=== PATIENT | female | born 1940 | race African-American/Black ===

== ENCOUNTER → 2018-06-29 | Outpatient (CLI) | payer MEDICARE, MEDICAID ==
[~2018-06-29] MED LIST: AMLO2.5T45 PO; ATOR10TA69 PO; AZAT50TA18 PO; CARV6.2548 PO; DEXL60CA3 PO; FERR-63 PO; FURO40TA5 PO; HYDR-4005 PO; MULT-1146 PO; NEOR25 PO; OMEP20CA10 PO; POTA20TA12 PO; PRED5TAB48 PO; TRAM50TA3 PO; [UNRECOGNIZED DRUG - CODE] PO; cranberry supplement PO
== END | disposition home or self-care (01) ==
LOC: MAMMO 10:40
PROVIDERS: ATTEND Specialist
DX: Z12.31 Encounter for screening mammogram for malignant neoplasm of breast (principal); R92.1 Mammographic calcification found on diagnostic imaging of breast
CPT/HCPCS: 77067

== ENCOUNTER 2018-07-11 11:37 | Inpatient (IN) | payer MEDICARE, MEDICAID ==
[~2018-07-11] VITALS: Ht 175.3 cm; Wt 101.6 kg
[2018-07-11] VITALS (16 sets, daily range): BP systolic 82–135; BP diastolic 43–74
[2018-07-11] MEDS ORDERED: SODIUM CHLORIDE 0.9% 1,000 ML IV ONE (12:41)
[2018-07-11] MEDS ORDERED: ONDANSETRON HCL 4MG/2ML INJ IV STA (12:41)
[2018-07-11] MEDS ORDERED: MORPHINE SULFATE 4 MG/ML CPJ (NOT FOR IM USE) IV STA (12:41)
[2018-07-11 13:27] LABS: BASOPHILS % 0.9 % (0.0-2.0); EOSINOPHILS % 3.7 % (0.0-5.0); HEMATOCRIT. 37.9 % (36.0-48.0); HEMOGLOBIN. 12.5 g/dL (12.0-16.0); LYMPHOCYTES % 13.1 % (20.0-50.0); MEAN CORPUSCULAR HEMOGLOBIN 29.8 pg (28.0-32.0); MEAN CORPUSCULAR VOLUME 90.4 fL (81.0-99.0); MEAN PLATELET VOLUME 9.1 fl (7.4-10.4); MONOCYTES % 14.7 % (2.0-8.0); NEUTROPHILS % 67.6 % (40.0-76.0); PLATELET 224 x1000/uL (130-400); RED CELL DISTRIBUTION WIDTH 14.7 % (11.6-14.6)
[2018-07-11 13:30] LABS: CHLORIDE 103 mEq/L (98-107)
[2018-07-11 13:45] LABS: PROTHROMBIN TIME 47.9 sec (9.1-11.1)
[2018-07-11 14:31] LABS: INR 4.9
[2018-07-11] MEDS ORDERED: PHYTONADIONE 10MG/ML AMP SUBCUT ONE (17:00)
[2018-07-11] MEDS ORDERED: MORPHINE SULFATE 4 MG/ML CPJ (NOT FOR IM USE) IV ONE (18:45)
[2018-07-11] MEDS ORDERED: ONDANSETRON HCL 4MG/2ML INJ IV ONE (18:45)
[2018-07-11] MEDS ORDERED: NICARDIPINE 50 MG in SODIUM CHLORIDE 0.9% 230 ML IV PRN (21:00)
[2018-07-11] MEDS: DEXT 5%/LACTATED RINGERS 1,000 ML IV SCH (21:00)
[2018-07-11] MEDS ORDERED: NICARDIPINE 100 MG in SODIUM CHLORIDE 0.9% 60 ML IV PRN (21:15)
[2018-07-11] MEDS: MORPHINE SULFATE 4 MG/ML CPJ (NOT FOR IM USE) IV PRN (21:34)
[2018-07-11] MEDS: LEVETIRACETAM 500 MG in SODIUM CHLORIDE 0.9% 100 ML IV SCH (23:37)
[2018-07-12] VITALS (64 sets, daily range): BP systolic 78–134; BP diastolic 44–80
[2018-07-12] MEDS: MIDODRINE HCL 5MG TABLET PO SCH ×4 (01:52→18:24)
[2018-07-12 05:30] LABS: HEMATOCRIT 34.9 % (36.0-48.0); HEMOGLOBIN 11.2 g/dL (12.0-16.0); MEAN CORPUSCULAR HEMOGLOBIN 29.7 pg (28.0-32.0); PLATELET 174 x1000/uL (130-400); RED BLOOD CELL COUNT 3.79 mill/uL (4.2-5.4); RED CELL DISTRIBUTION WIDTH 14.7 % (11.6-14.6)
[2018-07-12] MEDS: LEVETIRACETAM 500 MG in SODIUM CHLORIDE 0.9% 100 ML IV SCH ×2 (08:39→21:09)
[2018-07-12] MEDS: MORPHINE SULFATE 4 MG/ML CPJ (NOT FOR IM USE) IV PRN ×3 (12:01→21:10)
[2018-07-12] MEDS ORDERED: VERAPAMIL HCL 2.5 MG/1 ML 2ML VIAL IV PRN (14:00)
[2018-07-12 14:09] LABS: INR 2.6
[2018-07-12] MEDS: HYDROCODONE/ACETAMINOPHEN 5/325MG TABLET PO PRN ×2 (14:55→19:41)
[2018-07-12 15:30] LABS: PROTHROMBIN TIME 26.1 sec (9.1-11.1)
[2018-07-12] MEDS: DILTIAZEM HCL 30MG TABLET PO SCH ×2 (16:25→21:09)
[2018-07-12] MEDS: DEXT 5%/LACTATED RINGERS 1,000 ML IV SCH (18:25)
[2018-07-13] VITALS (55 sets, daily range): BP systolic 85–119; BP diastolic 42–65
[2018-07-13] MEDS: HYDROCODONE/ACETAMINOPHEN 5/325MG TABLET PO PRN ×3 (00:01→20:01)
[2018-07-13] MEDS: MORPHINE SULFATE 4 MG/ML CPJ (NOT FOR IM USE) IV PRN ×3 (01:06→21:01)
[2018-07-13 05:45] LABS: HEMOGLOBIN. 11.5 g/dL (12.0-16.0); MEAN CORPUSCULAR HEMOGLOBIN 29.9 pg (28.0-32.0); MEAN CORPUSCULAR VOLUME 91.1 fL (81.0-99.0); MEAN PLATELET VOLUME 9.1 fl (7.4-10.4); PLATELET 199 x1000/uL (130-400); RED BLOOD CELL COUNT 3.84 mill/uL (4.2-5.4); RED CELL DISTRIBUTION WIDTH 14.7 % (11.6-14.6)
[2018-07-13] MEDS: DILTIAZEM HCL 30MG TABLET PO SCH ×3 (05:47→21:05)
[2018-07-13] MEDS: LEVETIRACETAM 500 MG in SODIUM CHLORIDE 0.9% 100 ML IV SCH ×2 (08:24→21:00)
[2018-07-13 08:45] LABS: PLATELET ESTIMATE NORMAL
[2018-07-13] MEDS: MIDODRINE HCL 5MG TABLET PO SCH ×3 (09:11→18:07)
[2018-07-13] MEDS ORDERED: MORPHINE SULFATE 4 MG/ML CPJ (NOT FOR IM USE) IV SCH (10:15)
[2018-07-13 12:27] LABS: INR 1.8; PROTHROMBIN TIME 17.6 sec (9.1-11.1)
[2018-07-13] MEDS: PHYTONADIONE 10MG/ML AMP SUBCUT SCH (13:59)
[2018-07-13] MEDS: OMEPRAZOLE 20MG CAPSULE EXTENDED RELEASE PO SCH (13:59)
[2018-07-13] MEDS: DEXT 5%/LACTATED RINGERS 1,000 ML IV SCH (14:02)
[2018-07-14] VITALS (66 sets, daily range): BP systolic 92–135; BP diastolic 46–69
[2018-07-14] MEDS: MORPHINE SULFATE 4 MG/ML CPJ (NOT FOR IM USE) IV PRN ×3 (04:34→22:13)
[2018-07-14 05:02] LABS: HEMATOCRIT. 33.2 % (36.0-48.0); HEMOGLOBIN. 10.9 g/dL (12.0-16.0); MEAN CORPUSCULAR HEMOGLOBIN 29.8 pg (28.0-32.0); MEAN PLATELET VOLUME 9.1 fl (7.4-10.4); PLATELET 178 x1000/uL (130-400); RED BLOOD CELL COUNT 3.65 mill/uL (4.2-5.4); RED CELL DISTRIBUTION WIDTH 14.5 % (11.6-14.6)
[2018-07-14 05:09] LABS: INR 1.4
[2018-07-14] MEDS: DILTIAZEM HCL 30MG TABLET PO SCH ×3 (06:00→21:29)
[2018-07-14] MEDS: OMEPRAZOLE 20MG CAPSULE EXTENDED RELEASE PO SCH (06:01)
[2018-07-14] MEDS: DEXT 5%/0.9% NACL 1,000 ML IV SCH (08:01)
[2018-07-14] MEDS: PHYTONADIONE 10MG/ML AMP SUBCUT SCH (08:10)
[2018-07-14] MEDS: MIDODRINE HCL 5MG TABLET PO SCH ×3 (08:10→18:19)
[2018-07-14 08:15] LABS: PLATELET ESTIMATE NORMAL
[2018-07-14] MEDS: LEVETIRACETAM 500 MG in SODIUM CHLORIDE 0.9% 100 ML IV SCH ×2 (09:28→21:28)
[2018-07-14] MEDS: HYDROCODONE/ACETAMINOPHEN 5/325MG TABLET PO PRN ×2 (11:54→18:20)
[2018-07-15] VITALS (88 sets, daily range): BP systolic 76–120; BP diastolic 38–68
[2018-07-15] MEDS: OMEPRAZOLE 20MG CAPSULE EXTENDED RELEASE PO SCH (04:49)
[2018-07-15] MEDS: DILTIAZEM HCL 30MG TABLET PO SCH ×3 (04:50→21:22)
[2018-07-15] MEDS: HYDROCODONE/ACETAMINOPHEN 5/325MG TABLET PO PRN ×5 (04:50→21:11)
[2018-07-15 05:29] LABS: BASOPHILS % 0.8 % (0.0-2.0); EOSINOPHILS % 4.4 % (0.0-5.0); HEMATOCRIT. 32.4 % (36.0-48.0); HEMOGLOBIN. 10.6 g/dL (12.0-16.0); LYMPHOCYTES % 11.4 % (20.0-50.0); MEAN CORPUSCULAR HEMOGLOBIN 29.7 pg (28.0-32.0); MEAN CORPUSCULAR VOLUME 90.7 fL (81.0-99.0); MEAN PLATELET VOLUME 9.2 fl (7.4-10.4); MONOCYTES % 14.8 % (2.0-8.0); NEUTROPHILS % 68.6 % (40.0-76.0); PLATELET 179 x1000/uL (130-400); RED BLOOD CELL COUNT 3.57 mill/uL (4.2-5.4); RED CELL DISTRIBUTION WIDTH 14.2 % (11.6-14.6)
[2018-07-15 05:59] LABS: INR 1.2; PROTHROMBIN TIME 11.9 sec (9.1-11.1)
[2018-07-15] MEDS: DEXT 5%/0.9% NACL 1,000 ML IV SCH (08:05)
[2018-07-15] MEDS: MIDODRINE HCL 5MG TABLET PO SCH ×3 (08:30→17:07)
[2018-07-15] MEDS: LEVETIRACETAM 500 MG in SODIUM CHLORIDE 0.9% 100 ML IV SCH ×2 (08:30→20:36)
[2018-07-15] MEDS: PHYTONADIONE 10MG/ML AMP SUBCUT SCH (08:31)
[2018-07-15] MEDS ORDERED: LACTULOSE 20G/30ML UDC PO NR (11:30)
[2018-07-15] MEDS ORDERED: DOCUSATE SODIUM 250MG CAPSULE PO NR (11:30)
[2018-07-15] MEDS ORDERED: BISACODYL 5MG TABLET PO PRN (11:30)
[2018-07-15] MEDS: HYDROXYZINE 10 MG TABLET PO PRN ×2 (15:02→20:22)
[2018-07-15] MEDS: MORPHINE SULFATE 4 MG/ML CPJ (NOT FOR IM USE) IV PRN (17:54)
[2018-07-16] VITALS (85 sets, daily range): BP systolic 86–156; BP diastolic 34–70
[2018-07-16 05:27] LABS: BASOPHILS % 0.9 % (0.0-2.0); HEMATOCRIT. 30.7 % (36.0-48.0); HEMOGLOBIN. 10.2 g/dL (12.0-16.0); LYMPHOCYTES % 10.6 % (20.0-50.0); MEAN CORPUSCULAR HEMOGLOBIN 29.8 pg (28.0-32.0); MEAN CORPUSCULAR VOLUME 90.1 fL (81.0-99.0); MEAN PLATELET VOLUME 8.7 fl (7.4-10.4); MONOCYTES % 11.9 % (2.0-8.0); NEUTROPHILS % 71.6 % (40.0-76.0); PLATELET 168 x1000/uL (130-400); RED BLOOD CELL COUNT 3.41 mill/uL (4.2-5.4); RED CELL DISTRIBUTION WIDTH 13.9 % (11.6-14.6)
[2018-07-16 05:31] LABS: INR 1.2; PROTHROMBIN TIME 11.8 sec (9.1-11.1)
[2018-07-16] MEDS: MORPHINE SULFATE 4 MG/ML CPJ (NOT FOR IM USE) IV PRN (05:44)
[2018-07-16] MEDS: DILTIAZEM HCL 30MG TABLET PO SCH ×3 (05:48→21:06)
[2018-07-16] MEDS: OMEPRAZOLE 20MG CAPSULE EXTENDED RELEASE PO SCH (05:49)
[2018-07-16] MEDS ORDERED: FENTANYL CITRATE/PF 50MCG/ML 2ML VIAL ONE (07:12)
[2018-07-16] MEDS ORDERED: NEOSTIGMINE METHYLSULFATE 1MG/ML 10 ML VIAL ONE (07:13)
[2018-07-16] MEDS ORDERED: ROCURONIUM BROMIDE 10MG/ML VIAL 5ML IV ONE ×2 (07:13→08:14)
[2018-07-16] MEDS ORDERED: PROPOFOL 200MG/20ML VIAL IV ONE (07:13)
[2018-07-16] MEDS ORDERED: MIDAZOLAM HCL 2 MG/2 ML VIAL ONE (07:14)
[2018-07-16] MEDS ORDERED: GLYCOPYRROLATE 0.2 MG/ML 2ML VIAL ONE (07:14)
[2018-07-16] MEDS ORDERED: LIDOCAINE HCL/EPINEPHRINE 1%-EPI 1:100,000 20 ML VIAL ONE (07:16)
[2018-07-16] MEDS ORDERED: THROMBIN (BOVINE) 5000 UNITS/VIAL TOP ONE (07:16)
[2018-07-16] MEDS ORDERED: NORMAL SALINE 0.9% 10 ML SYR ONE (07:16)
[2018-07-16] MEDS ORDERED: GELATIN SPONGE,COMPRESSED SZ 100 ONE (07:17)
[2018-07-16] MEDS ORDERED: BACITRACIN 50,000 UNITS/VIAL ONE (07:17)
[2018-07-16] MEDS ORDERED: NICARDIPINE 100 MG in SODIUM CHLORIDE 0.9% 60 ML IV PRN (07:30)
[2018-07-16] MEDS ORDERED: ONDANSETRON HCL 4MG/2ML INJ ONE (07:34)
[2018-07-16] MEDS ORDERED: DEXAMETHASONE 4MG/ML 1ML VIAL ONE (07:34)
[2018-07-16] MEDS ORDERED: MEPERIDINE HCL/PF 25MG/ML CPJ IV PRN (08:30)
[2018-07-16] MEDS ORDERED: ONDANSETRON HCL 4MG/2ML INJ IV PRN (08:30)
[2018-07-16] MEDS ORDERED: LABETALOL 5MG/ML SYR 20 MG/4 ML SYRINGE IV PRN (08:30)
[2018-07-16] MEDS ORDERED: HYDROMORPHONE HCL/PF 2MG/ML CPJ IV PRN (08:30)
[2018-07-16] MEDS ORDERED: DOCUSATE SODIUM 250MG CAPSULE PO SCH (09:00)
[2018-07-16] MEDS: DEXT 5%/LACTATED RINGERS 1,000 ML IV SCH (10:00)
[2018-07-16] MEDS: LEVETIRACETAM 500 MG in SODIUM CHLORIDE 0.9% 100 ML IV SCH ×2 (11:13→20:56)
[2018-07-16] MEDS: DEXAMETHASONE 4MG/ML 1ML VIAL IV SCH ×2 (11:16→18:24)
[2018-07-16] MEDS ORDERED: PANTOPRAZOLE SODIUM 40 MG/VIAL IV NR (12:00)
[2018-07-16] MEDS: PROPOFOL 10MG/ML 100ML 100 ML IV PRN ×2 (12:27→20:56)
[2018-07-16 14:58] LABS: BG CARBOXYHEMOGLOBIN 0.2 % (0.5-1.5); BG DEOXYHEMOGLOBIN 1.6 % (0.0-5.0); BG FRACTION INSPIRED OXYGEN 100; BG HCO3 ACT 26.8 mmol/L (22.0-26.0); BG METHEMOGLOBIN 0.1 % (0.0-1.5); BG OXYGEN SATURATION 98.4 % (92.0-98.5); BG OXYHEMOGLOBIN 98.1 % (94.0-97.0); BG PCO2 42.6 mmHg (35.0-45.0); BG PH 7.416 (7.350-7.450); BG PO2 132.8 mmHg (75.0-100.0); BG SAMPLE SITE A-LINE; BG TIDAL VOLUME(mL) 500 mL; BG TOTAL HEMOGLOBIN 11.2 g/dL (12.0-18.0); BG VENT MODE VENT - A/C; BG VENT RATE 10 set
[2018-07-16 15:33] LABS: INR 1.1; PROTHROMBIN TIME 10.9 sec (9.1-11.1)
[2018-07-17] VITALS (73 sets, daily range): BP systolic 68–157; BP diastolic 49–83
[2018-07-17] MEDS: DEXAMETHASONE 4MG/ML 1ML VIAL IV SCH ×5 (00:02→23:16)
[2018-07-17] MEDS: DEXT 5%/LACTATED RINGERS 1,000 ML IV SCH (00:10)
[2018-07-17 05:28] LABS: INR 1.1; PROTHROMBIN TIME 10.9 sec (9.1-11.1)
[2018-07-17] MEDS: DILTIAZEM HCL 30MG TABLET PO SCH ×3 (06:00→21:08)
[2018-07-17] MEDS: PROPOFOL 10MG/ML 100ML 100 ML IV PRN (06:30)
[2018-07-17] MEDS: CEFAZOLIN 1000MG PREMIX 50 ML IV SCH (06:30)
[2018-07-17] MEDS ORDERED: CEFAZOLIN SODIUM 1000MG/VIAL IV SCH (07:30)
[2018-07-17] MEDS: LEVETIRACETAM 500 MG in SODIUM CHLORIDE 0.9% 100 ML IV SCH ×2 (09:45→21:09)
[2018-07-17] MEDS: PANTOPRAZOLE SODIUM 40 MG/VIAL IV SCH (09:45)
[2018-07-17] MEDS: MORPHINE SULFATE 4 MG/ML CPJ (NOT FOR IM USE) IV PRN ×2 (10:51→17:26)
[2018-07-17 11:05] LABS: BG BASE EXCESS 0.8 mmol/L (-2.0-2.0); BG CARBOXYHEMOGLOBIN 0.3 % (0.5-1.5); BG DEOXYHEMOGLOBIN 3.2 % (0.0-5.0); BG FRACTION INSPIRED OXYGEN 70; BG HCO3 ACT 24.9 mmol/L (22.0-26.0); BG METHEMOGLOBIN 0.2 % (0.0-1.5); BG OXYGEN SATURATION 96.8 % (92.0-98.5); BG OXYHEMOGLOBIN 96.3 % (94.0-97.0); BG PCO2 37.6 mmHg (35.0-45.0); BG PH 7.438 (7.350-7.450); BG PO2 93.4 mmHg (75.0-100.0); BG PRESSURE SUPPORT 8; BG SAMPLE SITE A-LINE; BG TOTAL HEMOGLOBIN 10.3 g/dL (12.0-18.0); BG VENT MODE VENT - CPAP
[2018-07-17] MEDS ORDERED: IPRATROPIUM/ALBUTEROL 0.5-3(2.5)MG/3ML NEB HHN PRN (12:15)
[2018-07-17] MEDS: CEFEPIME 2,000 MG in DEXT 5% WATER 100 ML IV SCH (14:41)
[2018-07-17] MEDS: METRONIDAZOLE 500 MG PREMIX 100 ML IV SCH ×2 (14:42→22:26)
[2018-07-17] MEDS: IPRATROPIUM/ALBUTEROL 0.5-3(2.5)MG/3ML NEB HHN SCH ×2 (19:53→23:50)
[2018-07-17] MEDS: ACETYLCYSTEINE 100MG/ML 10% VIAL 4ML INH SCH (23:50)
[2018-07-18] VITALS (51 sets, daily range): BP systolic 82–172; BP diastolic 44–87
[2018-07-18] MEDS: MORPHINE SULFATE 4 MG/ML CPJ (NOT FOR IM USE) IV PRN ×6 (00:04→19:55)
[2018-07-18] MEDS: IPRATROPIUM/ALBUTEROL 0.5-3(2.5)MG/3ML NEB HHN SCH ×5 (04:08→20:21)
[2018-07-18 05:43] LABS: HEMOGLOBIN. 9.7 g/dL (12.0-16.0); MEAN CORPUSCULAR HEMOGLOBIN 30.2 pg (28.0-32.0); MEAN CORPUSCULAR VOLUME 89.8 fL (81.0-99.0); MEAN PLATELET VOLUME 9.5 fl (7.4-10.4); PLATELET 186 x1000/uL (130-400); RED BLOOD CELL COUNT 3.23 mill/uL (4.2-5.4); RED CELL DISTRIBUTION WIDTH 13.5 % (11.6-14.6)
[2018-07-18] MEDS: DILTIAZEM HCL 30MG TABLET PO SCH ×4 (06:00→16:06)
[2018-07-18] MEDS: DEXAMETHASONE 4MG/ML 1ML VIAL IV SCH ×3 (06:25→18:15)
[2018-07-18] MEDS: METRONIDAZOLE 500 MG PREMIX 100 ML IV SCH ×3 (06:25→23:31)
[2018-07-18] MEDS: CEFAZOLIN 1000MG PREMIX 50 ML IV SCH (06:32)
[2018-07-18] MEDS: ACETYLCYSTEINE 100MG/ML 10% VIAL 4ML INH SCH ×2 (08:25→16:10)
[2018-07-18] MEDS: LEVETIRACETAM 500 MG in SODIUM CHLORIDE 0.9% 100 ML IV SCH ×2 (09:41→21:31)
[2018-07-18] MEDS: PANTOPRAZOLE SODIUM 40 MG/VIAL IV SCH (09:42)
[2018-07-18 10:28] LABS: PLATELET ESTIMATE NORMAL
[2018-07-18 11:37] LABS: BG BASE EXCESS -2.8 mmol/L (-2.0-2.0); BG CARBOXYHEMOGLOBIN 0.2 % (0.5-1.5); BG DEOXYHEMOGLOBIN 2.4 % (0.0-5.0); BG FRACTION INSPIRED OXYGEN 40; BG HCO3 ACT 21.5 mmol/L (22.0-26.0); BG OXYGEN SATURATION 97.6 % (92.0-98.5); BG OXYHEMOGLOBIN 97.4 % (94.0-97.0); BG PCO2 35.5 mmHg (35.0-45.0); BG PH 7.401 (7.350-7.450); BG PO2 106.8 mmHg (75.0-100.0); BG PRESSURE SUPPORT 8; BG SAMPLE SITE A-LINE; BG TOTAL HEMOGLOBIN 10.4 g/dL (12.0-18.0); BG VENT MODE VENT - CPAP
[2018-07-18] MEDS: CEFEPIME 2,000 MG in DEXT 5% WATER 100 ML IV SCH (14:10)
[2018-07-18] MEDS: DEXT 5%/0.45% NACL 1000ML 1,000 ML IV SCH (14:11)
[2018-07-18] MEDS ORDERED: LIDOCAINE HCL 1% 10 MG/ML 10ML VIAL ONE (15:08)
[2018-07-18] MEDS ORDERED: SODIUM BICARBONATE 4% (2.4MEQ) 5ML VIAL IV ONE (15:08)
[2018-07-19] VITALS (64 sets, daily range): BP systolic 86–152; BP diastolic 30–126
[2018-07-19] MEDS: ACETYLCYSTEINE 100MG/ML 10% VIAL 4ML INH SCH ×3 (00:26→16:00)
[2018-07-19] MEDS: IPRATROPIUM/ALBUTEROL 0.5-3(2.5)MG/3ML NEB HHN SCH ×6 (00:26→20:48)
[2018-07-19] MEDS: DEXAMETHASONE 4MG/ML 1ML VIAL IV SCH ×4 (01:07→18:06)
[2018-07-19] MEDS: MORPHINE SULFATE 4 MG/ML CPJ (NOT FOR IM USE) IV PRN ×5 (01:17→18:27)
[2018-07-19 06:12] LABS: HEMATOCRIT. 30.9 % (36.0-48.0); HEMOGLOBIN. 10.4 g/dL (12.0-16.0); MEAN CORPUSCULAR HEMOGLOBIN 30.3 pg (28.0-32.0); MEAN PLATELET VOLUME 9.1 fl (7.4-10.4); PLATELET 197 x1000/uL (130-400); RED BLOOD CELL COUNT 3.44 mill/uL (4.2-5.4); RED CELL DISTRIBUTION WIDTH 13.8 % (11.6-14.6)
[2018-07-19] MEDS: METRONIDAZOLE 500 MG PREMIX 100 ML IV SCH ×3 (06:46→22:47)
[2018-07-19] MEDS: DILTIAZEM HCL 30MG TABLET PO SCH ×3 (06:46→22:00)
[2018-07-19] MEDS: PANTOPRAZOLE SODIUM 40 MG/VIAL IV SCH (09:39)
[2018-07-19] MEDS: LEVETIRACETAM 500 MG in SODIUM CHLORIDE 0.9% 100 ML IV SCH ×2 (09:39→22:36)
[2018-07-19] MEDS ORDERED: DOCUSATE SODIUM 250MG CAPSULE PO SCH (12:15)
[2018-07-19 13:02] LABS: PLATELET ESTIMATE NORMAL
[2018-07-19] MEDS: CEFEPIME 2,000 MG in DEXT 5% WATER 100 ML IV SCH (15:10)
[2018-07-19] MEDS: DEXT 5%/0.45% NACL 1000ML 1,000 ML IV SCH (22:37)
[2018-07-20] VITALS (56 sets, daily range): BP systolic 64–142; BP diastolic 18–95
[2018-07-20] MEDS: DEXAMETHASONE 4MG/ML 1ML VIAL IV SCH ×3 (00:27→13:49)
[2018-07-20] MEDS: ACETYLCYSTEINE 100MG/ML 10% VIAL 4ML INH SCH ×4 (00:30→17:26)
[2018-07-20] MEDS: IPRATROPIUM/ALBUTEROL 0.5-3(2.5)MG/3ML NEB HHN SCH ×6 (00:51→21:05)
[2018-07-20] MEDS: DILTIAZEM HCL 30MG TABLET PO SCH (06:12)
[2018-07-20] MEDS: METRONIDAZOLE 500 MG PREMIX 100 ML IV SCH ×3 (06:13→22:11)
[2018-07-20] MEDS: MORPHINE SULFATE 4 MG/ML CPJ (NOT FOR IM USE) IV PRN ×5 (06:25→23:37)
[2018-07-20 06:35] LABS: HEMATOCRIT. 31.1 % (36.0-48.0); HEMOGLOBIN. 10.3 g/dL (12.0-16.0); MEAN CORPUSCULAR HEMOGLOBIN 29.7 pg (28.0-32.0); MEAN CORPUSCULAR VOLUME 89.5 fL (81.0-99.0); MEAN PLATELET VOLUME 9.6 fl (7.4-10.4); PLATELET 200 x1000/uL (130-400); RED BLOOD CELL COUNT 3.48 mill/uL (4.2-5.4); RED CELL DISTRIBUTION WIDTH 13.9 % (11.6-14.6)
[2018-07-20 08:01] LABS: PLATELET ESTIMATE NORMAL
[2018-07-20] MEDS: LEVETIRACETAM 500 MG in SODIUM CHLORIDE 0.9% 100 ML IV SCH ×2 (08:48→20:40)
[2018-07-20] MEDS: DOCUSATE SODIUM 250MG CAPSULE PO SCH (08:49)
[2018-07-20] MEDS: PANTOPRAZOLE SODIUM 40 MG/VIAL IV SCH (08:49)
[2018-07-20] MEDS: DILTIAZEM HCL 60MG TABLET PO SCH ×2 (14:00→20:40)
[2018-07-20] MEDS: CEFEPIME 2,000 MG in DEXT 5% WATER 100 ML IV SCH (17:12)
[2018-07-21] VITALS (27 sets, daily range): BP systolic 114–144; BP diastolic 40–82
[2018-07-21] MEDS: IPRATROPIUM/ALBUTEROL 0.5-3(2.5)MG/3ML NEB HHN SCH ×5 (00:36→20:16)
[2018-07-21] MEDS: MORPHINE SULFATE 4 MG/ML CPJ (NOT FOR IM USE) IV PRN ×2 (04:50→09:38)
[2018-07-21] MEDS: DILTIAZEM HCL 60MG TABLET PO SCH ×3 (05:38→22:00)
[2018-07-21 06:22] LABS: HEMATOCRIT. 28.4 % (36.0-48.0); HEMOGLOBIN. 9.6 g/dL (12.0-16.0); MEAN CORPUSCULAR HEMOGLOBIN 30.2 pg (28.0-32.0); MEAN CORPUSCULAR VOLUME 89.7 fL (81.0-99.0); MEAN PLATELET VOLUME 9.3 fl (7.4-10.4); PLATELET 176 x1000/uL (130-400); RED BLOOD CELL COUNT 3.17 mill/uL (4.2-5.4); RED CELL DISTRIBUTION WIDTH 13.7 % (11.6-14.6)
[2018-07-21] MEDS ORDERED: DEXAMETHASONE 4MG/ML 1ML VIAL IV SCH (09:00)
[2018-07-21] MEDS: DOCUSATE SODIUM 250MG CAPSULE PO SCH (09:00)
[2018-07-21] MEDS: PANTOPRAZOLE SODIUM 40 MG/VIAL IV SCH (09:11)
[2018-07-21] MEDS: LEVETIRACETAM 500 MG in SODIUM CHLORIDE 0.9% 100 ML IV SCH ×2 (09:11→21:39)
[2018-07-21] MEDS: ACETYLCYSTEINE 100MG/ML 10% VIAL 4ML INH SCH ×2 (11:24→15:29)
[2018-07-21] MEDS: CEFEPIME 2,000 MG in DEXT 5% WATER 100 ML IV SCH (13:21)
[2018-07-21 13:40] LABS: PLATELET ESTIMATE NORMAL
[2018-07-21] MEDS: METRONIDAZOLE 500 MG PREMIX 100 ML IV SCH ×3 (14:06→22:22)
[2018-07-21] MEDS: HYDROCODONE/ACETAMINOPHEN 5/325MG TABLET PO PRN (18:01)
[2018-07-21] MEDS: QUETIAPINE FUMARATE 25MG TABLET PO SCH (21:39)
[2018-07-22] MEDS: ACETYLCYSTEINE 100MG/ML 10% VIAL 4ML INH SCH (00:28)
[2018-07-22] MEDS: IPRATROPIUM/ALBUTEROL 0.5-3(2.5)MG/3ML NEB HHN SCH ×5 (00:28→19:53)
[2018-07-22] MEDS: BISACODYL 5MG TABLET PO PRN ×2 (01:15→21:18)
[2018-07-22 04:00] VITALS: BP 119/59
[2018-07-22] MEDS: DILTIAZEM HCL 60MG TABLET PO SCH ×3 (05:51→21:09)
[2018-07-22 05:55] VITALS: BP 122/54
[2018-07-22] MEDS: METRONIDAZOLE 500 MG PREMIX 100 ML IV SCH ×3 (06:00→22:00)
[2018-07-22] MEDS: HYDROCODONE/ACETAMINOPHEN 5/325MG TABLET PO PRN ×2 (06:32→14:05)
[2018-07-22 07:24] LABS: HEMATOCRIT. 27.2 % (36.0-48.0); HEMOGLOBIN. 9.3 g/dL (12.0-16.0); MEAN CORPUSCULAR HEMOGLOBIN 30.4 pg (28.0-32.0); MEAN CORPUSCULAR VOLUME 88.5 fL (81.0-99.0); MEAN PLATELET VOLUME 9.3 fl (7.4-10.4); PLATELET 179 x1000/uL (130-400); RED BLOOD CELL COUNT 3.07 mill/uL (4.2-5.4); RED CELL DISTRIBUTION WIDTH 13.6 % (11.6-14.6)
[2018-07-22 08:00] VITALS: BP 106/32
[2018-07-22] MEDS: DOCUSATE SODIUM 250MG CAPSULE PO SCH (09:00)
[2018-07-22] MEDS: PANTOPRAZOLE SODIUM 40 MG/VIAL IV SCH (09:00)
[2018-07-22] MEDS: DEXAMETHASONE 4MG/ML 1ML VIAL IV SCH (09:00)
[2018-07-22 12:00] VITALS: BP 123/28
[2018-07-22] MEDS: LEVETIRACETAM 500 MG in SODIUM CHLORIDE 0.9% 100 ML IV SCH ×2 (14:51→21:08)
[2018-07-22] MEDS: CEFEPIME 2,000 MG in DEXT 5% WATER 100 ML IV SCH (14:51)
[2018-07-22 16:00] VITALS: BP 136/21
[2018-07-22 20:00] VITALS: BP 116/66
[2018-07-22] MEDS: QUETIAPINE FUMARATE 25MG TABLET PO SCH (21:09)
[2018-07-22] MEDS: HYDROCODONE/ACETAMINOPHEN 10/325MG TABLET PO PRN (21:19)
[2018-07-23] VITALS: BP 110/71
[2018-07-23] MEDS: IPRATROPIUM/ALBUTEROL 0.5-3(2.5)MG/3ML NEB HHN SCH ×6 (00:34→20:52)
[2018-07-23] MEDS: ACETYLCYSTEINE 100MG/ML 10% VIAL 4ML INH SCH (00:35)
[2018-07-23 04:00] VITALS: BP 110/75
[2018-07-23] MEDS: DILTIAZEM HCL 60MG TABLET PO SCH ×3 (06:17→22:00)
[2018-07-23] MEDS: METRONIDAZOLE 500 MG PREMIX 100 ML IV SCH ×3 (06:17→23:04)
[2018-07-23 08:00] VITALS: BP 143/28
[2018-07-23 09:02] LABS: PLATELET ESTIMATE NORMAL
[2018-07-23] MEDS: DEXAMETHASONE 4MG/ML 1ML VIAL IV SCH (09:19)
[2018-07-23] MEDS: PANTOPRAZOLE SODIUM 40 MG/VIAL IV SCH (09:19)
[2018-07-23] MEDS: DOCUSATE SODIUM 250MG CAPSULE PO SCH (09:19)
[2018-07-23] MEDS: HYDROCODONE/ACETAMINOPHEN 10/325MG TABLET PO PRN ×2 (09:19→16:12)
[2018-07-23] MEDS: LEVETIRACETAM 500 MG in SODIUM CHLORIDE 0.9% 100 ML IV SCH ×2 (09:20→21:09)
[2018-07-23 09:57] LABS: HEMATOCRIT. 26.3 % (36.0-48.0); HEMOGLOBIN. 8.8 g/dL (12.0-16.0); MEAN CORPUSCULAR HEMOGLOBIN 30.3 pg (28.0-32.0); MEAN CORPUSCULAR VOLUME 90.7 fL (81.0-99.0); MEAN PLATELET VOLUME 9.2 fl (7.4-10.4); PLATELET 155 x1000/uL (130-400); RED BLOOD CELL COUNT 2.89 mill/uL (4.2-5.4); RED CELL DISTRIBUTION WIDTH 13.6 % (11.6-14.6)
[2018-07-23 12:00] VITALS: BP 116/30
[2018-07-23] MEDS: HYDROCODONE/ACETAMINOPHEN 5/325MG TABLET PO PRN ×2 (13:31→18:02)
[2018-07-23] MEDS: CEFEPIME 2,000 MG in DEXT 5% WATER 100 ML IV SCH (13:31)
[2018-07-23 14:11] LABS: PLATELET ESTIMATE NORMAL
[2018-07-23 15:53] VITALS: BP 116/42
[2018-07-23 20:00] VITALS: BP_SYST 94; BP_DIAS 54; BP_DIAS 59
[2018-07-23] MEDS: QUETIAPINE FUMARATE 25MG TABLET PO SCH (21:09)
[2018-07-24] VITALS (7 sets, daily range): BP systolic 107–142; BP diastolic 26–50
[2018-07-24] MEDS: IPRATROPIUM/ALBUTEROL 0.5-3(2.5)MG/3ML NEB HHN SCH ×6 (01:27→21:17)
[2018-07-24] MEDS: HYDROCODONE/ACETAMINOPHEN 10/325MG TABLET PO PRN ×3 (02:37→19:01)
[2018-07-24] MEDS: METRONIDAZOLE 500 MG PREMIX 100 ML IV SCH ×2 (06:26→15:03)
[2018-07-24] MEDS: DILTIAZEM HCL 60MG TABLET PO SCH ×3 (06:26→22:35)
[2018-07-24] MEDS: DOCUSATE SODIUM 250MG CAPSULE PO SCH (09:22)
[2018-07-24] MEDS: LEVETIRACETAM 500 MG in SODIUM CHLORIDE 0.9% 100 ML IV SCH ×2 (09:22→20:26)
[2018-07-24] MEDS: PANTOPRAZOLE SODIUM 40 MG/VIAL IV SCH (09:22)
[2018-07-24] MEDS: HYDROCODONE/ACETAMINOPHEN 5/325MG TABLET PO PRN ×2 (09:23→16:44)
[2018-07-24] MEDS: BISACODYL 10MG SUPP PR SCH (10:30)
[2018-07-24] MEDS: BISACODYL 5MG TABLET PO PRN (10:39)
[2018-07-24 10:56] LABS: HEMATOCRIT. 24.5 % (36.0-48.0); HEMOGLOBIN. 8.2 g/dL (12.0-16.0); MEAN CORPUSCULAR HEMOGLOBIN 30.5 pg (28.0-32.0); MEAN CORPUSCULAR VOLUME 91.1 fL (81.0-99.0); MEAN PLATELET VOLUME 9.2 fl (7.4-10.4); PLATELET 160 x1000/uL (130-400); RED BLOOD CELL COUNT 2.69 mill/uL (4.2-5.4); RED CELL DISTRIBUTION WIDTH 13.5 % (11.6-14.6)
[2018-07-24 11:41] LABS: PLATELET ESTIMATE NORMAL
[2018-07-24] MEDS: CEFEPIME 2,000 MG in DEXT 5% WATER 100 ML IV SCH (14:17)
[2018-07-24] MEDS: QUETIAPINE FUMARATE 25MG TABLET PO SCH (20:26)
[2018-07-24 21:21] LABS: BG CARBOXYHEMOGLOBIN 0.3 % (0.5-1.5); BG DEOXYHEMOGLOBIN 11.3 % (0.0-5.0); BG FRACTION INSPIRED OXYGEN 40; BG HCO3 ACT 21.5 mmol/L (22.0-26.0); BG OXYGEN SATURATION 88.7 % (92.0-98.5); BG OXYHEMOGLOBIN 88.4 % (94.0-97.0); BG PCO2 31.9 mmHg (35.0-45.0); BG PH 7.447 (7.350-7.450); BG PO2 56.2 mmHg (75.0-100.0); BG SAMPLE SITE LEFT BRACHIAL; BG TOTAL HEMOGLOBIN 8.9 g/dL (12.0-18.0); BG VENT MODE NASAL CANNULA
[2018-07-25] VITALS (16 sets, daily range): BP systolic 76–120; BP diastolic 29–70
[2018-07-25] MEDS: IPRATROPIUM/ALBUTEROL 0.5-3(2.5)MG/3ML NEB HHN SCH ×6 (01:15→23:43)
[2018-07-25] MEDS: MORPHINE SULFATE 4 MG/ML CPJ (NOT FOR IM USE) IV PRN ×3 (01:44→16:22)
[2018-07-25] MEDS: HYDROCODONE/ACETAMINOPHEN 10/325MG TABLET PO PRN ×2 (04:10→20:01)
[2018-07-25] MEDS: DILTIAZEM HCL 60MG TABLET PO SCH ×3 (06:00→21:16)
[2018-07-25 06:59] LABS: HEMATOCRIT. 24.5 % (36.0-48.0); MEAN CORPUSCULAR HEMOGLOBIN 30.1 pg (28.0-32.0); MEAN CORPUSCULAR VOLUME 91.8 fL (81.0-99.0); MEAN PLATELET VOLUME 9.4 fl (7.4-10.4); PLATELET 161 x1000/uL (130-400); RED BLOOD CELL COUNT 2.67 mill/uL (4.2-5.4); RED CELL DISTRIBUTION WIDTH 13.6 % (11.6-14.6)
[2018-07-25] MEDS: BISACODYL 10MG SUPP PR SCH (09:00)
[2018-07-25] MEDS: DOCUSATE SODIUM 250MG CAPSULE PO SCH (09:00)
[2018-07-25 09:11] LABS: BG BASE EXCESS -1.8 mmol/L (-2.0-2.0); BG CARBOXYHEMOGLOBIN 0.7 % (0.5-1.5); BG DEOXYHEMOGLOBIN 3.9 % (0.0-5.0); BG FRACTION INSPIRED OXYGEN 60; BG HCO3 ACT 21.5 mmol/L (22.0-26.0); BG METHEMOGLOBIN 0.1 % (0.0-1.5); BG OXYGEN SATURATION 96.1 % (92.0-98.5); BG OXYHEMOGLOBIN 95.3 % (94.0-97.0); BG PCO2 31.2 mmHg (35.0-45.0); BG PH 7.457 (7.350-7.450); BG PO2 88.1 mmHg (75.0-100.0); BG SAMPLE SITE LEFT BRACHIAL; BG VENT MODE MASK - SIMPLE
[2018-07-25] MEDS: LEVETIRACETAM 500 MG in SODIUM CHLORIDE 0.9% 100 ML IV SCH ×2 (09:11→21:26)
[2018-07-25] MEDS: PANTOPRAZOLE SODIUM 40 MG/VIAL IV SCH (09:11)
[2018-07-25 10:51] LABS: PLATELET ESTIMATE NORMAL
[2018-07-25 15:26] LABS: BG BASE EXCESS 1.5 mmol/L (-2.0-2.0); BG CARBOXYHEMOGLOBIN 0.6 % (0.5-1.5); BG DEOXYHEMOGLOBIN 4.5 % (0.0-5.0); BG FRACTION INSPIRED OXYGEN 60; BG HCO3 ACT 25.1 mmol/L (22.0-26.0); BG METHEMOGLOBIN 0.3 % (0.0-1.5); BG OXYGEN SATURATION 95.5 % (92.0-98.5); BG OXYHEMOGLOBIN 94.6 % (94.0-97.0); BG PCO2 35.3 mmHg (35.0-45.0); BG PO2 77.1 mmHg (75.0-100.0); BG SAMPLE SITE LEFT BRACHIAL; BG TOTAL HEMOGLOBIN 8.3 g/dL (12.0-18.0); BG VENT MODE MASK - SIMPLE
[2018-07-25] MEDS: PIPERACILLIN/TAZ 2.25G PREMIX 50 ML IV SCH (18:44)
[2018-07-25] MEDS: QUETIAPINE FUMARATE 25MG TABLET PO SCH (21:26)
[2018-07-25] MEDS: EPOETIN ALFA 10000UNITS/ML VIAL SUBCUT SCH (21:26)
[2018-07-26] VITALS (12 sets, daily range): BP systolic 97–131; BP diastolic 53–80
[2018-07-26] MEDS: MORPHINE SULFATE 4 MG/ML CPJ (NOT FOR IM USE) IV PRN ×5 (00:12→21:20)
[2018-07-26] MEDS: IPRATROPIUM/ALBUTEROL 0.5-3(2.5)MG/3ML NEB HHN SCH ×5 (03:09→21:31)
[2018-07-26] MEDS: HYDROCODONE/ACETAMINOPHEN 10/325MG TABLET PO PRN ×2 (03:29→07:35)
[2018-07-26] MEDS: PIPERACILLIN/TAZ 2.25G PREMIX 50 ML IV SCH ×2 (05:10→17:30)
[2018-07-26] MEDS: DILTIAZEM HCL 60MG TABLET PO SCH ×3 (05:10→21:29)
[2018-07-26 06:17] LABS: HEMATOCRIT. 24.3 % (36.0-48.0); HEMOGLOBIN. 8.3 g/dL (12.0-16.0); MEAN CORPUSCULAR HEMOGLOBIN 30.4 pg (28.0-32.0); MEAN CORPUSCULAR VOLUME 89.1 fL (81.0-99.0); MEAN PLATELET VOLUME 9.9 fl (7.4-10.4); PLATELET 168 x1000/uL (130-400); RED BLOOD CELL COUNT 2.72 mill/uL (4.2-5.4); RED CELL DISTRIBUTION WIDTH 14.2 % (11.6-14.6)
[2018-07-26] MEDS ORDERED: LORAZEPAM 2MG/ML CPJ IV NR (08:30)
[2018-07-26] MEDS: PANTOPRAZOLE SODIUM 40 MG/VIAL IV SCH (09:04)
[2018-07-26] MEDS: LEVETIRACETAM 500 MG in SODIUM CHLORIDE 0.9% 100 ML IV SCH ×2 (09:04→21:35)
[2018-07-26] MEDS: DOCUSATE SODIUM 250MG CAPSULE PO SCH (09:04)
[2018-07-26] MEDS: BISACODYL 10MG SUPP PR SCH (09:04)
[2018-07-26] MEDS ORDERED: IOHEXOL-350 100 ML BOTTLE ONE (12:38)
[2018-07-26 13:44] LABS: PLATELET ESTIMATE NORMAL
[2018-07-26 16:44] LABS: BG BASE EXCESS 0.4 mmol/L (-2.0-2.0); BG CARBOXYHEMOGLOBIN 0.1 % (0.5-1.5); BG DEOXYHEMOGLOBIN 4.8 % (0.0-5.0); BG HCO3 ACT 25.7 mmol/L (22.0-26.0); BG METHEMOGLOBIN 0.1 % (0.0-1.5); BG OXYGEN SATURATION 95.2 % (92.0-98.5); BG PCO2 44.7 mmHg (35.0-45.0); BG PH 7.378 (7.350-7.450); BG PO2 83.5 mmHg (75.0-100.0); BG SAMPLE SITE LEFT RADIAL; BG TOTAL HEMOGLOBIN 9.2 g/dL (12.0-18.0); BG VENT MODE MASK - SIMPLE
[2018-07-26] MEDS: DEXT 5%/0.45% NACL 1000ML 1,000 ML IV SCH ×2 (17:15→21:33)
[2018-07-26] MEDS: QUETIAPINE FUMARATE 25MG TABLET PO SCH (21:00)
[2018-07-27] VITALS (91 sets, daily range): BP systolic 76–162; BP diastolic 28–73
[2018-07-27] MEDS: IPRATROPIUM/ALBUTEROL 0.5-3(2.5)MG/3ML NEB HHN SCH ×5 (00:48→19:47)
[2018-07-27] MEDS ORDERED: PHENYLEPHRINE 40 MG in DEXT 5% WATER 250 ML IV PRN (02:22)
[2018-07-27] MEDS ORDERED: DOPAMINE 800MG PREMIX 250 ML IV PRN (02:22)
[2018-07-27] MEDS: NOREPINEPHRINE 16 MG in DEXT 5% WATER 234 ML IV PRN (02:43)
[2018-07-27] MEDS ORDERED: DOPAMINE 400MG PREMIX 250 ML IV PRN (02:45)
[2018-07-27] MEDS ORDERED: PROPOFOL 10MG/ML 100ML 100 ML IV PRN ×2 (02:45→11:20)
[2018-07-27 02:50] LABS: BG BASE EXCESS -2.1 mmol/L (-2.0-2.0); BG CARBOXYHEMOGLOBIN 0.3 % (0.5-1.5); BG DEOXYHEMOGLOBIN 1.8 % (0.0-5.0); BG FRACTION INSPIRED OXYGEN 100; BG HCO3 ACT 23.1 mmol/L (22.0-26.0); BG METHEMOGLOBIN 0.2 % (0.0-1.5); BG OXYGEN SATURATION 98.2 % (92.0-98.5); BG OXYHEMOGLOBIN 97.7 % (94.0-97.0); BG PCO2 41.5 mmHg (35.0-45.0); BG PH 7.364 (7.350-7.450); BG PO2 121.5 mmHg (75.0-100.0); BG SAMPLE SITE LEFT RADIAL; BG TIDAL VOLUME(mL) 500 mL; BG TOTAL HEMOGLOBIN 9.8 g/dL (12.0-18.0); BG VENT MODE VENT - A/C; BG VENT RATE 16 set
[2018-07-27] MEDS: PIPERACILLIN/TAZ 2.25G PREMIX 50 ML IV SCH ×2 (05:28→18:08)
[2018-07-27] MEDS: DILTIAZEM HCL 60MG TABLET PO SCH ×3 (05:34→22:00)
[2018-07-27] MEDS: MORPHINE SULFATE 4 MG/ML CPJ (NOT FOR IM USE) IV PRN (05:55)
[2018-07-27 06:17] LABS: HEMATOCRIT. 28.4 % (36.0-48.0); HEMOGLOBIN. 9.2 g/dL (12.0-16.0); MEAN CORPUSCULAR HEMOGLOBIN 29.6 pg (28.0-32.0); MEAN CORPUSCULAR VOLUME 91.1 fL (81.0-99.0); MEAN PLATELET VOLUME 9.9 fl (7.4-10.4); PLATELET 187 x1000/uL (130-400); RED BLOOD CELL COUNT 3.12 mill/uL (4.2-5.4); RED CELL DISTRIBUTION WIDTH 14.6 % (11.6-14.6)
[2018-07-27] MEDS: DOCUSATE SODIUM 250MG CAPSULE PO SCH (08:43)
[2018-07-27 08:48] LABS: PLATELET ESTIMATE NORMAL
[2018-07-27] MEDS: LEVETIRACETAM 500 MG in SODIUM CHLORIDE 0.9% 100 ML IV SCH ×2 (10:00→21:16)
[2018-07-27] MEDS: PANTOPRAZOLE SODIUM 40 MG/VIAL IV SCH (10:00)
[2018-07-27 12:15] LABS: BG BASE EXCESS -2.4 mmol/L (-2.0-2.0); BG CARBOXYHEMOGLOBIN 0.4 % (0.5-1.5); BG DEOXYHEMOGLOBIN 1.3 % (0.0-5.0); BG HCO3 ACT 21.3 mmol/L (22.0-26.0); BG OXYGEN SATURATION 98.7 % (92.0-98.5); BG OXYHEMOGLOBIN 98.3 % (94.0-97.0); BG PCO2 32.3 mmHg (35.0-45.0); BG PH 7.438 (7.350-7.450); BG PO2 143.4 mmHg (75.0-100.0); BG SAMPLE SITE LEFT RADIAL; BG TIDAL VOLUME(mL) 500 mL; BG TOTAL HEMOGLOBIN 8.6 g/dL (12.0-18.0); BG VENT MODE VENT - A/C; BG VENT RATE 16 set
[2018-07-27] MEDS ORDERED: EPINEPHRINE 0.1MG/ML (1:10,000) 10ML SYR ONE (14:13)
[2018-07-27] MEDS ORDERED: SODIUM BICARBONATE 7.5% 0.9 MEQ/ML 50ML SYR IV ONE (14:13)
[2018-07-27] MEDS ORDERED: DEXTROSE 50% WATER 50ML SYRINGE IV ONE (14:13)
[2018-07-27] MEDS ORDERED: CALCIUM CHLORIDE 1GM/10ML SYR IV ONE (14:13)
[2018-07-27] MEDS: BISACODYL 10MG SUPP PR SCH (16:00)
[2018-07-27] MEDS: QUETIAPINE FUMARATE 25MG TABLET PO SCH (21:16)
[2018-07-27] MEDS: EPOETIN ALFA 10000UNITS/ML VIAL SUBCUT SCH (21:17)
[2018-07-28] VITALS (98 sets, daily range): BP systolic 73–169; BP diastolic 36–73
[2018-07-28] MEDS: IPRATROPIUM/ALBUTEROL 0.5-3(2.5)MG/3ML NEB HHN SCH ×6 (00:12→20:57)
[2018-07-28 05:42] LABS: HEMATOCRIT. 24.6 % (36.0-48.0); HEMOGLOBIN. 8.1 g/dL (12.0-16.0); MEAN CORPUSCULAR HEMOGLOBIN 29.8 pg (28.0-32.0); MEAN CORPUSCULAR VOLUME 90.6 fL (81.0-99.0); PLATELET 177 x1000/uL (130-400); RED BLOOD CELL COUNT 2.72 mill/uL (4.2-5.4); RED CELL DISTRIBUTION WIDTH 14.4 % (11.6-14.6)
[2018-07-28] MEDS: PIPERACILLIN/TAZ 2.25G PREMIX 50 ML IV SCH ×2 (05:57→17:20)
[2018-07-28] MEDS: MORPHINE SULFATE 4 MG/ML CPJ (NOT FOR IM USE) IV PRN ×2 (05:58→09:46)
[2018-07-28] MEDS: DILTIAZEM HCL 60MG TABLET PO SCH ×3 (05:58→22:34)
[2018-07-28 07:41] LABS: PLATELET ESTIMATE NORMAL
[2018-07-28] MEDS: LEVETIRACETAM 500 MG in SODIUM CHLORIDE 0.9% 100 ML IV SCH ×2 (09:18→21:12)
[2018-07-28] MEDS: DOCUSATE SODIUM SUGAR FREE 100MG/10ML UDC NG SCH (09:19)
[2018-07-28] MEDS: PANTOPRAZOLE SODIUM 40 MG/VIAL IV SCH (09:19)
[2018-07-28] MEDS: BISACODYL 10MG SUPP PR SCH (09:19)
[2018-07-28] MEDS: NOREPINEPHRINE 16 MG in DEXT 5% WATER 234 ML IV PRN (09:20)
[2018-07-28 09:33] LABS: BG BASE EXCESS -0.7 mmol/L (-2.0-2.0); BG CARBOXYHEMOGLOBIN 0.2 % (0.5-1.5); BG DEOXYHEMOGLOBIN 2.5 % (0.0-5.0); BG FRACTION INSPIRED OXYGEN 60; BG HCO3 ACT 23.8 mmol/L (22.0-26.0); BG METHEMOGLOBIN 0.1 % (0.0-1.5); BG OXYGEN SATURATION 97.5 % (92.0-98.5); BG OXYHEMOGLOBIN 97.2 % (94.0-97.0); BG PCO2 38.1 mmHg (35.0-45.0); BG PH 7.413 (7.350-7.450); BG PO2 107.2 mmHg (75.0-100.0); BG SAMPLE SITE LEFT RADIAL; BG TIDAL VOLUME(mL) 500 mL; BG TOTAL HEMOGLOBIN 9.3 g/dL (12.0-18.0); BG VENT MODE VENT - A/C; BG VENT RATE 16 set
[2018-07-28] MEDS ORDERED: PROPOFOL 10MG/ML 100ML 100 ML IV PRN (11:13)
[2018-07-28] MEDS: DEXT 5%/0.45% NACL 1000ML 1,000 ML IV SCH (17:22)
[2018-07-28] MEDS: QUETIAPINE FUMARATE 25MG TABLET PO SCH (21:13)
[2018-07-29] VITALS (102 sets, daily range): BP systolic 67–226; BP diastolic 29–107
[2018-07-29] MEDS: IPRATROPIUM/ALBUTEROL 0.5-3(2.5)MG/3ML NEB HHN SCH ×7 (00:37→20:47)
[2018-07-29] MEDS: PIPERACILLIN/TAZ 2.25G PREMIX 50 ML IV SCH (04:37)
[2018-07-29 05:25] LABS: HEMATOCRIT. 26.9 % (36.0-48.0); HEMOGLOBIN. 8.9 g/dL (12.0-16.0); MEAN CORPUSCULAR HEMOGLOBIN 29.7 pg (28.0-32.0); MEAN CORPUSCULAR VOLUME 89.7 fL (81.0-99.0); MEAN PLATELET VOLUME 9.9 fl (7.4-10.4); PLATELET 218 x1000/uL (130-400); RED CELL DISTRIBUTION WIDTH 14.2 % (11.6-14.6)
[2018-07-29] MEDS: DILTIAZEM HCL 60MG TABLET PO SCH ×3 (06:00→22:00)
[2018-07-29 06:36] LABS: PLATELET ESTIMATE NORMAL
[2018-07-29 07:16] LABS: BG BASE EXCESS 1.5 mmol/L (-2.0-2.0); BG DEOXYHEMOGLOBIN 6.3 % (0.0-5.0); BG HCO3 ACT 25.2 mmol/L (22.0-26.0); BG METHEMOGLOBIN 0.3 % (0.0-1.5); BG OXYGEN SATURATION 93.7 % (92.0-98.5); BG OXYHEMOGLOBIN 93.4 % (94.0-97.0); BG PCO2 35.9 mmHg (35.0-45.0); BG PH 7.464 (7.350-7.450); BG SAMPLE SITE LEFT BRACHIAL; BG TIDAL VOLUME(mL) 500 mL; BG TOTAL HEMOGLOBIN 9.5 g/dL (12.0-18.0); BG VENT MODE VENT - A/C; BG VENT RATE 16 set
[2018-07-29] MEDS ORDERED: LIDOCAINE HCL 1% 20ML VIAL (Pyxis) INJ ONE (08:00)
[2018-07-29] MEDS ORDERED: PROPOFOL 10MG/ML 100ML 100 ML IV PRN ×2 (09:31→14:00)
[2018-07-29] MEDS: LEVETIRACETAM 500 MG in SODIUM CHLORIDE 0.9% 100 ML IV SCH ×2 (10:15→20:49)
[2018-07-29] MEDS: PANTOPRAZOLE SODIUM 40 MG/VIAL IV SCH (10:16)
[2018-07-29] MEDS: DOCUSATE SODIUM SUGAR FREE 100MG/10ML UDC NG SCH (10:16)
[2018-07-29] MEDS: BISACODYL 10MG SUPP PR SCH (10:16)
[2018-07-29] MEDS: NOREPINEPHRINE 16 MG in DEXT 5% WATER 234 ML IV PRN (10:45)
[2018-07-29] MEDS: ACETAMINOPHEN 650MG/20.3ML UDC PO PRN ×2 (14:09→20:50)
[2018-07-29] MEDS: ACETYLCYSTEINE 100MG/ML 10% VIAL 4ML INH SCH (14:18)
[2018-07-29] MEDS ORDERED: VANCOMYCIN 2,000 MG in DEXT 5% WATER 500 ML IV SCH (15:00)
[2018-07-29] MEDS: MEROPENEM 500 MG in SODIUM CHLORIDE 0.9% 50 ML IV SCH (16:38)
[2018-07-29] MEDS: EPOETIN ALFA 10000UNITS/ML VIAL SUBCUT SCH (20:50)
[2018-07-29] MEDS: QUETIAPINE FUMARATE 25MG TABLET PO SCH (20:50)
[2018-07-30] VITALS (93 sets, daily range): BP systolic 83–189; BP diastolic 35–80
[2018-07-30] MEDS: IPRATROPIUM/ALBUTEROL 0.5-3(2.5)MG/3ML NEB HHN SCH ×6 (00:52→20:54)
[2018-07-30] MEDS: ACETYLCYSTEINE 100MG/ML 10% VIAL 4ML INH SCH ×3 (00:52→16:22)
[2018-07-30] MEDS: NOREPINEPHRINE 16 MG in DEXT 5% WATER 234 ML IV PRN ×2 (04:43→16:22)
[2018-07-30] MEDS: DEXT 5%/0.45% NACL 1000ML 1,000 ML IV SCH ×2 (04:45→16:23)
[2018-07-30] MEDS: DILTIAZEM HCL 60MG TABLET PO SCH ×3 (06:00→21:07)
[2018-07-30 06:11] LABS: BASOPHILS % 0.5 % (0.0-2.0); EOSINOPHILS % 0.2 % (0.0-5.0); HEMATOCRIT. 27.1 % (36.0-48.0); HEMOGLOBIN. 8.9 g/dL (12.0-16.0); LYMPHOCYTES % 7.9 % (20.0-50.0); MEAN CORPUSCULAR HEMOGLOBIN 29.8 pg (28.0-32.0); MEAN CORPUSCULAR VOLUME 91.1 fL (81.0-99.0); MEAN PLATELET VOLUME 9.8 fl (7.4-10.4); MONOCYTES % 10.5 % (2.0-8.0); NEUTROPHILS % 80.9 % (40.0-76.0); PLATELET 202 x1000/uL (130-400); RED BLOOD CELL COUNT 2.97 mill/uL (4.2-5.4); RED CELL DISTRIBUTION WIDTH 14.9 % (11.6-14.6)
[2018-07-30 08:01] LABS: BG BASE EXCESS -0.7 mmol/L (-2.0-2.0); BG CARBOXYHEMOGLOBIN 0.3 % (0.5-1.5); BG DEOXYHEMOGLOBIN 1.3 % (0.0-5.0); BG FRACTION INSPIRED OXYGEN 60; BG HCO3 ACT 22.9 mmol/L (22.0-26.0); BG METHEMOGLOBIN 0.3 % (0.0-1.5); BG OXYGEN SATURATION 98.7 % (92.0-98.5); BG OXYHEMOGLOBIN 98.1 % (94.0-97.0); BG PCO2 33.9 mmHg (35.0-45.0); BG PH 7.447 (7.350-7.450); BG SAMPLE SITE LEFT RADIAL; BG TIDAL VOLUME(mL) 500 mL; BG TOTAL HEMOGLOBIN 10.3 g/dL (12.0-18.0); BG VENT MODE VENT - A/C; BG VENT RATE 14 set
[2018-07-30] MEDS: ACETAMINOPHEN 650MG/20.3ML UDC PO PRN ×3 (09:34→22:00)
[2018-07-30] MEDS ORDERED: HEPARIN SODIUM 1,000 UNIT/1ML VIAL IV SCH (10:00)
[2018-07-30] MEDS: PANTOPRAZOLE SODIUM 40 MG/VIAL IV SCH (12:24)
[2018-07-30] MEDS: LEVETIRACETAM 500 MG in SODIUM CHLORIDE 0.9% 100 ML IV SCH ×2 (12:27→21:06)
[2018-07-30] MEDS: DOCUSATE SODIUM SUGAR FREE 100MG/10ML UDC NG SCH (12:38)
[2018-07-30] MEDS: BISACODYL 10MG SUPP PR SCH (12:41)
[2018-07-30] MEDS: MEROPENEM 500 MG in SODIUM CHLORIDE 0.9% 50 ML IV SCH (16:13)
[2018-07-30] MEDS: QUETIAPINE FUMARATE 25MG TABLET PO SCH (21:00)
[2018-07-31] VITALS (94 sets, daily range): BP systolic 67–150; BP diastolic 29–76
[2018-07-31] MEDS: ACETYLCYSTEINE 100MG/ML 10% VIAL 4ML INH SCH ×3 (00:15→16:49)
[2018-07-31] MEDS: IPRATROPIUM/ALBUTEROL 0.5-3(2.5)MG/3ML NEB HHN SCH ×6 (00:15→20:15)
[2018-07-31] MEDS: ACETAMINOPHEN 650MG/20.3ML UDC PO PRN ×3 (04:07→17:05)
[2018-07-31 05:25] LABS: HEMATOCRIT. 27.9 % (36.0-48.0); HEMOGLOBIN. 9.1 g/dL (12.0-16.0); MEAN CORPUSCULAR HEMOGLOBIN 29.5 pg (28.0-32.0); MEAN CORPUSCULAR VOLUME 90.5 fL (81.0-99.0); MEAN PLATELET VOLUME 9.8 fl (7.4-10.4); PLATELET 194 x1000/uL (130-400); RED BLOOD CELL COUNT 3.08 mill/uL (4.2-5.4); RED CELL DISTRIBUTION WIDTH 14.7 % (11.6-14.6)
[2018-07-31] MEDS: DILTIAZEM HCL 60MG TABLET PO SCH ×3 (05:33→21:04)
[2018-07-31] MEDS: NOREPINEPHRINE 16 MG in DEXT 5% WATER 234 ML IV PRN ×2 (05:33→19:31)
[2018-07-31 08:28] LABS: BG BASE EXCESS -1.3 mmol/L (-2.0-2.0); BG CARBOXYHEMOGLOBIN 0.1 % (0.5-1.5); BG DEOXYHEMOGLOBIN 1.7 % (0.0-5.0); BG FRACTION INSPIRED OXYGEN 40; BG HCO3 ACT 22.4 mmol/L (22.0-26.0); BG METHEMOGLOBIN 0.3 % (0.0-1.5); BG OXYGEN SATURATION 98.3 % (92.0-98.5); BG OXYHEMOGLOBIN 97.9 % (94.0-97.0); BG PCO2 33.8 mmHg (35.0-45.0); BG PO2 123.9 mmHg (75.0-100.0); BG SAMPLE SITE LEFT BRACHIAL; BG TIDAL VOLUME(mL) 500 mL; BG TOTAL HEMOGLOBIN 9.7 g/dL (12.0-18.0); BG VENT MODE VENT - A/C; BG VENT RATE 14 set
[2018-07-31] MEDS: BISACODYL 10MG SUPP PR SCH (09:00)
[2018-07-31] MEDS: LEVETIRACETAM 500 MG in SODIUM CHLORIDE 0.9% 100 ML IV SCH ×2 (09:50→21:03)
[2018-07-31] MEDS: PANTOPRAZOLE SODIUM 40 MG/VIAL IV SCH (09:51)
[2018-07-31] MEDS: BISACODYL 5MG TABLET PO PRN (09:56)
[2018-07-31] MEDS: DOCUSATE SODIUM SUGAR FREE 100MG/10ML UDC NG SCH (09:59)
[2018-07-31] MEDS ORDERED: VANCOMYCIN 1500MG in DEXTROSE 5% WATER 250ML IV NR (10:00)
[2018-07-31 10:34] LABS: PLATELET ESTIMATE NORMAL
[2018-07-31] MEDS: MEROPENEM 500 MG in SODIUM CHLORIDE 0.9% 50 ML IV SCH (15:51)
[2018-07-31] MEDS: QUETIAPINE FUMARATE 25MG TABLET PO SCH (21:00)
[2018-07-31] MEDS: DEXT 5%/0.45% NACL 1000ML 1,000 ML IV SCH (21:05)
[2018-08-01] VITALS (99 sets, daily range): BP systolic 80–141; BP diastolic 37–67
[2018-08-01] MEDS: ACETYLCYSTEINE 100MG/ML 10% VIAL 4ML INH SCH ×2 (00:28→08:50)
[2018-08-01] MEDS: IPRATROPIUM/ALBUTEROL 0.5-3(2.5)MG/3ML NEB HHN SCH ×6 (00:29→21:01)
[2018-08-01] MEDS: DILTIAZEM HCL 60MG TABLET PO SCH ×3 (05:29→22:03)
[2018-08-01 06:29] LABS: HEMATOCRIT. 27.1 % (36.0-48.0); HEMOGLOBIN. 8.9 g/dL (12.0-16.0); MEAN CORPUSCULAR HEMOGLOBIN 29.7 pg (28.0-32.0); MEAN CORPUSCULAR VOLUME 90.2 fL (81.0-99.0); MEAN PLATELET VOLUME 10.3 fl (7.4-10.4); PLATELET 180 x1000/uL (130-400); RED CELL DISTRIBUTION WIDTH 14.6 % (11.6-14.6)
[2018-08-01] MEDS: NOREPINEPHRINE 16 MG in DEXT 5% WATER 234 ML IV PRN ×2 (07:54→20:15)
[2018-08-01] MEDS: BISACODYL 10MG SUPP PR SCH (09:00)
[2018-08-01] MEDS ORDERED: HEPARIN SODIUM 1,000 UNIT/1ML VIAL IV SCH (09:00)
[2018-08-01] MEDS: DOCUSATE SODIUM SUGAR FREE 100MG/10ML UDC NG SCH (09:26)
[2018-08-01] MEDS: LEVETIRACETAM 500 MG in SODIUM CHLORIDE 0.9% 100 ML IV SCH ×2 (09:27→20:45)
[2018-08-01] MEDS: PANTOPRAZOLE SODIUM 40 MG/VIAL IV SCH (09:27)
[2018-08-01 10:48] LABS: PLATELET ESTIMATE NORMAL
[2018-08-01] MEDS: ACETAMINOPHEN 650MG/20.3ML UDC PO PRN ×2 (12:55→20:15)
[2018-08-01] MEDS: MEROPENEM 500 MG in SODIUM CHLORIDE 0.9% 50 ML IV SCH (16:37)
[2018-08-01] MEDS: DEXT 5%/0.45% NACL 1000ML 1,000 ML IV SCH (17:30)
[2018-08-02] VITALS (93 sets, daily range): BP systolic 84–158; BP diastolic 37–71
[2018-08-02] MEDS: IPRATROPIUM/ALBUTEROL 0.5-3(2.5)MG/3ML NEB HHN SCH ×6 (01:03→20:21)
[2018-08-02] MEDS: DILTIAZEM HCL 60MG TABLET PO SCH ×3 (05:31→22:02)
[2018-08-02 05:46] LABS: HEMATOCRIT. 24.6 % (36.0-48.0); MEAN CORPUSCULAR HEMOGLOBIN 29.5 pg (28.0-32.0); MEAN CORPUSCULAR VOLUME 91.2 fL (81.0-99.0); RED CELL DISTRIBUTION WIDTH 14.8 % (11.6-14.6)
[2018-08-02 07:16] LABS: MEAN PLATELET VOLUME 10.7 fl (7.4-10.4); PLATELET 149 x1000/uL (130-400)
[2018-08-02 07:19] LABS: PLATELET ESTIMATE NORMAL
[2018-08-02 07:43] LABS: BG BASE EXCESS -2.9 mmol/L (-2.0-2.0); BG CARBOXYHEMOGLOBIN 0.6 % (0.5-1.5); BG DEOXYHEMOGLOBIN 3.8 % (0.0-5.0); BG HCO3 ACT 21.9 mmol/L (22.0-26.0); BG METHEMOGLOBIN 0.3 % (0.0-1.5); BG OXYGEN SATURATION 96.2 % (92.0-98.5); BG OXYHEMOGLOBIN 95.3 % (94.0-97.0); BG PCO2 37.7 mmHg (35.0-45.0); BG PH 7.381 (7.350-7.450); BG PO2 87.5 mmHg (75.0-100.0); BG SAMPLE SITE LEFT RADIAL; BG TIDAL VOLUME(mL) 500 mL; BG VENT MODE VENT - SIMV; BG VENT RATE 8 set
[2018-08-02] MEDS: DOCUSATE SODIUM SUGAR FREE 100MG/10ML UDC NG SCH (09:53)
[2018-08-02] MEDS: BISACODYL 10MG SUPP PR SCH (09:53)
[2018-08-02] MEDS: LEVETIRACETAM 500 MG in SODIUM CHLORIDE 0.9% 100 ML IV SCH ×2 (09:53→20:40)
[2018-08-02] MEDS: PANTOPRAZOLE SODIUM 40 MG/VIAL IV SCH (09:53)
[2018-08-02 12:35] LABS: BG BASE EXCESS -3.2 mmol/L (-2.0-2.0); BG CARBOXYHEMOGLOBIN 0.2 % (0.5-1.5); BG DEOXYHEMOGLOBIN 2.9 % (0.0-5.0); BG FRACTION INSPIRED OXYGEN 40; BG HCO3 ACT 22.1 mmol/L (22.0-26.0); BG METHEMOGLOBIN 0.3 % (0.0-1.5); BG OXYGEN SATURATION 97.1 % (92.0-98.5); BG OXYHEMOGLOBIN 96.6 % (94.0-97.0); BG PCO2 40.8 mmHg (35.0-45.0); BG PH 7.352 (7.350-7.450); BG PO2 100.4 mmHg (75.0-100.0); BG PRESSURE SUPPORT 8; BG SAMPLE SITE LEFT BRACHIAL; BG TOTAL HEMOGLOBIN 8.6 g/dL (12.0-18.0); BG VENT MODE VENT - CPAP
[2018-08-02] MEDS: MIDODRINE HCL 5MG TABLET PO SCH ×2 (13:56→17:30)
[2018-08-02] MEDS: MEROPENEM 500 MG in SODIUM CHLORIDE 0.9% 50 ML IV SCH (15:16)
[2018-08-02] MEDS: ACETAMINOPHEN 650MG/20.3ML UDC PO PRN (16:32)
[2018-08-02] MEDS: DEXT 5%/0.45% NACL 1000ML 1,000 ML IV SCH (17:29)
[2018-08-02] MEDS: EPOETIN ALFA 10000UNITS/ML VIAL SUBCUT SCH (20:41)
[2018-08-02] MEDS: NOREPINEPHRINE 16 MG in DEXT 5% WATER 234 ML IV PRN (22:54)
[2018-08-03] VITALS (96 sets, daily range): BP systolic 87–158; BP diastolic 38–76
[2018-08-03] MEDS: IPRATROPIUM/ALBUTEROL 0.5-3(2.5)MG/3ML NEB HHN SCH ×6 (00:09→20:21)
[2018-08-03 05:52] LABS: HEMATOCRIT. 24.2 % (36.0-48.0); HEMOGLOBIN. 7.8 g/dL (12.0-16.0); MEAN CORPUSCULAR HEMOGLOBIN 29.5 pg (28.0-32.0); MEAN CORPUSCULAR VOLUME 91.6 fL (81.0-99.0); MEAN PLATELET VOLUME 10.9 fl (7.4-10.4); PLATELET 138 x1000/uL (130-400); RED BLOOD CELL COUNT 2.65 mill/uL (4.2-5.4); RED CELL DISTRIBUTION WIDTH 14.7 % (11.6-14.6)
[2018-08-03] MEDS: DILTIAZEM HCL 60MG TABLET PO SCH (05:56)
[2018-08-03] MEDS: DOCUSATE SODIUM SUGAR FREE 100MG/10ML UDC NG SCH (09:00)
[2018-08-03] MEDS: BISACODYL 10MG SUPP PR SCH (09:00)
[2018-08-03] MEDS ORDERED: HEPARIN SODIUM 1,000 UNIT/1ML VIAL IV NR (09:15)
[2018-08-03] MEDS: LEVETIRACETAM 500 MG in SODIUM CHLORIDE 0.9% 100 ML IV SCH ×2 (10:31→23:26)
[2018-08-03] MEDS: PANTOPRAZOLE SODIUM 40 MG/VIAL IV SCH (10:31)
[2018-08-03] MEDS: MIDODRINE HCL 5MG TABLET PO SCH (10:31)
[2018-08-03 13:41] LABS: NUCLEATED RED BLOOD CELLS 1 /100 WBC; PLATELET ESTIMATE NORMAL
[2018-08-03] MEDS: NOREPINEPHRINE 16 MG in DEXT 5% WATER 234 ML IV PRN (14:11)
[2018-08-03] MEDS: MIDODRINE HCL 10 MG TABLET PO SCH ×2 (14:11→16:05)
[2018-08-03] MEDS: MEROPENEM 500 MG in SODIUM CHLORIDE 0.9% 50 ML IV SCH (16:05)
[2018-08-03] MEDS: ACETAMINOPHEN 650MG/20.3ML UDC PO PRN (21:23)
[2018-08-04] VITALS (90 sets, daily range): BP systolic 76–151; BP diastolic 29–73
[2018-08-04] MEDS: IPRATROPIUM/ALBUTEROL 0.5-3(2.5)MG/3ML NEB HHN SCH ×6 (00:06→20:06)
[2018-08-04] MEDS: ACETAMINOPHEN 650MG/20.3ML UDC PO PRN ×2 (02:58→08:31)
[2018-08-04 06:00] LABS: HEMOGLOBIN. 9.7 g/dL (12.0-16.0); MEAN CORPUSCULAR HEMOGLOBIN 29.4 pg (28.0-32.0); MEAN CORPUSCULAR VOLUME 90.5 fL (81.0-99.0); PLATELET 177 x1000/uL (130-400); RED BLOOD CELL COUNT 3.32 mill/uL (4.2-5.4); RED CELL DISTRIBUTION WIDTH 14.9 % (11.6-14.6)
[2018-08-04 08:07] LABS: BG BASE EXCESS -2.7 mmol/L (-2.0-2.0); BG CARBOXYHEMOGLOBIN 0.9 % (0.5-1.5); BG DEOXYHEMOGLOBIN 6.2 % (0.0-5.0); BG FRACTION INSPIRED OXYGEN 40; BG HCO3 ACT 23.4 mmol/L (22.0-26.0); BG METHEMOGLOBIN 0.4 % (0.0-1.5); BG OXYGEN SATURATION 93.7 % (92.0-98.5); BG OXYHEMOGLOBIN 92.5 % (94.0-97.0); BG PCO2 46.5 mmHg (35.0-45.0); BG PH 7.319 (7.350-7.450); BG PRESSURE SUPPORT 12; BG SAMPLE SITE LEFT RADIAL; BG TIDAL VOLUME(mL) 500 mL; BG TOTAL HEMOGLOBIN 9.2 g/dL (12.0-18.0); BG VENT MODE VENT - SIMV; BG VENT RATE 8 set
[2018-08-04] MEDS: NOREPINEPHRINE 16 MG in DEXT 5% WATER 234 ML IV PRN (08:10)
[2018-08-04] MEDS: DOCUSATE SODIUM SUGAR FREE 100MG/10ML UDC NG SCH (08:22)
[2018-08-04] MEDS: PANTOPRAZOLE SODIUM 40 MG/VIAL IV SCH (08:22)
[2018-08-04] MEDS: MIDODRINE HCL 10 MG TABLET PO SCH ×3 (08:22→16:28)
[2018-08-04] MEDS: BISACODYL 10MG SUPP PR SCH (08:22)
[2018-08-04] MEDS: LEVETIRACETAM 500 MG in SODIUM CHLORIDE 0.9% 100 ML IV SCH ×2 (09:04→23:05)
[2018-08-04 09:51] LABS: PLATELET ESTIMATE NORMAL
[2018-08-04] MEDS: MEROPENEM 500 MG in SODIUM CHLORIDE 0.9% 50 ML IV SCH (16:28)
[2018-08-04] MEDS: ACETYLCYSTEINE 100MG/ML 10% VIAL 4ML INH SCH (17:02)
[2018-08-04] MEDS: DEXT 5%/0.45% NACL 1000ML 1,000 ML IV SCH ×2 (17:15→22:16)
[2018-08-04] MEDS: EPOETIN ALFA 10000UNITS/ML VIAL SUBCUT SCH (23:05)
[2018-08-05] VITALS (99 sets, daily range): BP systolic 59–175; BP diastolic 26–71
[2018-08-05] MEDS: IPRATROPIUM/ALBUTEROL 0.5-3(2.5)MG/3ML NEB HHN SCH ×6 (00:01→21:01)
[2018-08-05] MEDS: ACETYLCYSTEINE 100MG/ML 10% VIAL 4ML INH SCH ×3 (00:01→15:53)
[2018-08-05] MEDS: NOREPINEPHRINE 16 MG in DEXT 5% WATER 234 ML IV PRN ×2 (05:24→15:48)
[2018-08-05 05:45] LABS: HEMATOCRIT. 26.6 % (36.0-48.0); HEMOGLOBIN. 8.8 g/dL (12.0-16.0); MEAN CORPUSCULAR HEMOGLOBIN 30.1 pg (28.0-32.0); MEAN CORPUSCULAR VOLUME 90.6 fL (81.0-99.0); MEAN PLATELET VOLUME 10.9 fl (7.4-10.4); PLATELET 221 x1000/uL (130-400); RED BLOOD CELL COUNT 2.94 mill/uL (4.2-5.4); RED CELL DISTRIBUTION WIDTH 15.1 % (11.6-14.6)
[2018-08-05] MEDS: ACETAMINOPHEN 650MG/20.3ML UDC PO PRN (06:31)
[2018-08-05 06:44] LABS: INR 1.1; PROTHROMBIN TIME 11.1 sec (9.1-11.1)
[2018-08-05 07:46] LABS: PLATELET ESTIMATE NORMAL
[2018-08-05] MEDS: MIDODRINE HCL 10 MG TABLET PO SCH ×3 (09:00→16:50)
[2018-08-05] MEDS: BISACODYL 10MG SUPP PR SCH (09:00)
[2018-08-05] MEDS: DOCUSATE SODIUM SUGAR FREE 100MG/10ML UDC NG SCH (09:00)
[2018-08-05] MEDS: LEVETIRACETAM 500 MG in SODIUM CHLORIDE 0.9% 100 ML IV SCH ×2 (10:11→21:20)
[2018-08-05] MEDS: PANTOPRAZOLE SODIUM 40 MG/VIAL IV SCH (10:12)
[2018-08-05] MEDS ORDERED: MIDAZOLAM HCL 5 MG/5 ML VIAL ONE (16:00)
[2018-08-05] MEDS ORDERED: FENTANYL CITRATE/PF 50MCG/ML 2ML VIAL ONE ×2 (16:00→19:13)
[2018-08-05] MEDS: MEROPENEM 500 MG in SODIUM CHLORIDE 0.9% 50 ML IV SCH (16:50)
[2018-08-05] MEDS ORDERED: ROCURONIUM BROMIDE 10MG/ML VIAL 5ML IV ONE ×2 (19:02→19:14)
[2018-08-05] MEDS ORDERED: MIDAZOLAM HCL 2 MG/2 ML VIAL ONE (19:15)
[2018-08-06] VITALS (87 sets, daily range): BP systolic 62–168; BP diastolic 25–83
[2018-08-06] MEDS: ACETYLCYSTEINE 100MG/ML 10% VIAL 4ML INH SCH ×2 (01:05→15:08)
[2018-08-06] MEDS: IPRATROPIUM/ALBUTEROL 0.5-3(2.5)MG/3ML NEB HHN SCH ×4 (01:05→19:57)
[2018-08-06] MEDS: NOREPINEPHRINE 16 MG in DEXT 5% WATER 234 ML IV PRN ×2 (02:40→23:16)
[2018-08-06 05:40] LABS: HEMATOCRIT. 28.4 % (36.0-48.0); HEMOGLOBIN. 9.3 g/dL (12.0-16.0); MEAN CORPUSCULAR HEMOGLOBIN 29.4 pg (28.0-32.0); MEAN CORPUSCULAR VOLUME 90.4 fL (81.0-99.0); MEAN PLATELET VOLUME 10.2 fl (7.4-10.4); PLATELET 289 x1000/uL (130-400); RED BLOOD CELL COUNT 3.14 mill/uL (4.2-5.4); RED CELL DISTRIBUTION WIDTH 15.1 % (11.6-14.6)
[2018-08-06 07:44] LABS: PLATELET ESTIMATE NORMAL
[2018-08-06 07:47] LABS: BG BASE EXCESS -6.7 mmol/L (-2.0-2.0); BG CARBOXYHEMOGLOBIN 0.6 % (0.5-1.5); BG DEOXYHEMOGLOBIN 1.9 % (0.0-5.0); BG HCO3 ACT 19.1 mmol/L (22.0-26.0); BG METHEMOGLOBIN 0.3 % (0.0-1.5); BG OXYGEN SATURATION 98.1 % (92.0-98.5); BG OXYHEMOGLOBIN 97.2 % (94.0-97.0); BG PCO2 39.2 mmHg (35.0-45.0); BG PH 7.305 (7.350-7.450); BG PO2 120.5 mmHg (75.0-100.0); BG SAMPLE SITE LEFT RADIAL; BG TIDAL VOLUME(mL) 500 mL; BG TOTAL HEMOGLOBIN 11.1 g/dL (12.0-18.0); BG VENT MODE VENT - A/C; BG VENT RATE 14 set
[2018-08-06] MEDS: BISACODYL 10MG SUPP PR SCH (09:00)
[2018-08-06] MEDS ORDERED: HEPARIN SODIUM 1,000 UNIT/1ML VIAL IV SCH (09:30)
[2018-08-06] MEDS: LEVETIRACETAM 500 MG in SODIUM CHLORIDE 0.9% 100 ML IV SCH ×2 (10:09→21:08)
[2018-08-06] MEDS: MIDODRINE HCL 10 MG TABLET PO SCH ×3 (10:10→17:25)
[2018-08-06] MEDS: PANTOPRAZOLE SODIUM 40 MG/VIAL IV SCH (10:10)
[2018-08-06] MEDS: DOCUSATE SODIUM SUGAR FREE 100MG/10ML UDC NG SCH (10:10)
[2018-08-06] MEDS: ACETAMINOPHEN 650MG/20.3ML UDC PO PRN (14:14)
[2018-08-06] MEDS: MORPHINE SULFATE 4 MG/ML CPJ (NOT FOR IM USE) IV PRN (15:54)
[2018-08-06] MEDS: DEXT 5%/0.45% NACL 1000ML 1,000 ML IV SCH (16:17)
[2018-08-06] MEDS: PHENYLEPHRINE 40 MG in DEXT 5% WATER 246 ML IV PRN (18:32)
[2018-08-06] MEDS: EPOETIN ALFA 10000UNITS/ML VIAL SUBCUT SCH (21:14)
[2018-08-07] VITALS (100 sets, daily range): BP systolic 70–159; BP diastolic 18–77
[2018-08-07] MEDS: ACETYLCYSTEINE 100MG/ML 10% VIAL 4ML INH SCH ×4 (01:42→16:01)
[2018-08-07] MEDS: IPRATROPIUM/ALBUTEROL 0.5-3(2.5)MG/3ML NEB HHN SCH ×5 (01:42→20:02)
[2018-08-07 05:49] LABS: HEMOGLOBIN. 8.2 g/dL (12.0-16.0); MEAN CORPUSCULAR HEMOGLOBIN 29.7 pg (28.0-32.0); MEAN CORPUSCULAR VOLUME 90.1 fL (81.0-99.0); PLATELET 293 x1000/uL (130-400); RED BLOOD CELL COUNT 2.77 mill/uL (4.2-5.4); RED CELL DISTRIBUTION WIDTH 15.4 % (11.6-14.6)
[2018-08-07 07:18] LABS: PLATELET ESTIMATE NORMAL
[2018-08-07 08:23] LABS: BG BASE EXCESS -7.9 mmol/L (-2.0-2.0); BG CARBOXYHEMOGLOBIN 0.2 % (0.5-1.5); BG DEOXYHEMOGLOBIN 1.2 % (0.0-5.0); BG FRACTION INSPIRED OXYGEN 50; BG HCO3 ACT 17.2 mmol/L (22.0-26.0); BG METHEMOGLOBIN 0.1 % (0.0-1.5); BG OXYGEN SATURATION 98.8 % (92.0-98.5); BG OXYHEMOGLOBIN 98.5 % (94.0-97.0); BG PCO2 33.3 mmHg (35.0-45.0); BG PO2 163.5 mmHg (75.0-100.0); BG SAMPLE SITE LEFT BRACHIAL; BG TIDAL VOLUME(mL) 500 mL; BG TOTAL HEMOGLOBIN 8.6 g/dL (12.0-18.0); BG VENT MODE VENT - A/C; BG VENT RATE 14 set
[2018-08-07] MEDS: BISACODYL 10MG SUPP PR SCH (09:00)
[2018-08-07] MEDS: DOCUSATE SODIUM SUGAR FREE 100MG/10ML UDC NG SCH (09:00)
[2018-08-07] MEDS: PANTOPRAZOLE SODIUM 40 MG/VIAL IV SCH (09:18)
[2018-08-07] MEDS: MIDODRINE HCL 10 MG TABLET PO SCH ×3 (09:18→17:36)
[2018-08-07] MEDS: LEVETIRACETAM 500 MG in SODIUM CHLORIDE 0.9% 100 ML IV SCH ×2 (09:18→20:23)
[2018-08-07] MEDS: DEXT 5%/0.45% NACL 1000ML 1,000 ML IV SCH (11:38)
[2018-08-07] MEDS ORDERED: TRAMADOL 50MG TABLET GT PRN (14:15)
[2018-08-07] MEDS: MORPHINE SULFATE 4 MG/ML CPJ (NOT FOR IM USE) IV PRN ×2 (14:24→22:47)
[2018-08-07] MEDS: NOREPINEPHRINE 16 MG in DEXT 5% WATER 234 ML IV PRN (18:31)
[2018-08-08] VITALS (93 sets, daily range): BP systolic 87–162; BP diastolic 42–92
[2018-08-08] MEDS: ACETYLCYSTEINE 100MG/ML 10% VIAL 4ML INH SCH ×3 (02:09→14:13)
[2018-08-08] MEDS: IPRATROPIUM/ALBUTEROL 0.5-3(2.5)MG/3ML NEB HHN SCH ×3 (02:09→14:13)
[2018-08-08 05:25] LABS: HEMATOCRIT. 25.6 % (36.0-48.0); HEMOGLOBIN. 8.5 g/dL (12.0-16.0); MEAN CORPUSCULAR HEMOGLOBIN 29.9 pg (28.0-32.0); MEAN CORPUSCULAR VOLUME 90.3 fL (81.0-99.0); MEAN PLATELET VOLUME 9.7 fl (7.4-10.4); PLATELET 312 x1000/uL (130-400); RED BLOOD CELL COUNT 2.83 mill/uL (4.2-5.4); RED CELL DISTRIBUTION WIDTH 15.5 % (11.6-14.6)
[2018-08-08] MEDS: BISACODYL 10MG SUPP PR SCH (08:16)
[2018-08-08] MEDS: DOCUSATE SODIUM SUGAR FREE 100MG/10ML UDC NG SCH (08:17)
[2018-08-08] MEDS: PANTOPRAZOLE SODIUM 40 MG/VIAL IV SCH (09:43)
[2018-08-08] MEDS: MIDODRINE HCL 10 MG TABLET PO SCH ×2 (09:43→12:13)
[2018-08-08 09:45] LABS: PLATELET ESTIMATE NORMAL
[2018-08-08] MEDS ORDERED: HEPARIN SODIUM 1,000 UNIT/1ML VIAL IV NR (09:45)
[2018-08-08] MEDS: LEVETIRACETAM 500 MG in SODIUM CHLORIDE 0.9% 100 ML IV SCH ×2 (10:10→22:07)
[2018-08-08 12:05] LABS: BG CARBOXYHEMOGLOBIN 0.3 % (0.5-1.5); BG DEOXYHEMOGLOBIN 1.5 % (0.0-5.0); BG FRACTION INSPIRED OXYGEN 40; BG HCO3 ACT 21.8 mmol/L (22.0-26.0); BG METHEMOGLOBIN 0.4 % (0.0-1.5); BG OXYGEN SATURATION 98.5 % (92.0-98.5); BG OXYHEMOGLOBIN 97.8 % (94.0-97.0); BG PCO2 42.8 mmHg (35.0-45.0); BG PH 7.325 (7.350-7.450); BG PO2 142.8 mmHg (75.0-100.0); BG SAMPLE SITE LEFT RADIAL; BG TIDAL VOLUME(mL) 500 mL; BG TOTAL HEMOGLOBIN 9.8 g/dL (12.0-18.0); BG VENT MODE VENT - A/C; BG VENT RATE 12 set
[2018-08-08] MEDS: NOREPINEPHRINE 16 MG in DEXT 5% WATER 234 ML IV PRN (12:11)
[2018-08-08] MEDS: METOCLOPRAMIDE HCL 10MG/2ML VIAL IV SCH ×2 (12:14→17:42)
[2018-08-08] MEDS: MIDODRINE HCL 5MG TABLET PO SCH (17:42)
[2018-08-08] MEDS: MORPHINE SULFATE 4 MG/ML CPJ (NOT FOR IM USE) IV PRN (17:53)
[2018-08-09] VITALS (94 sets, daily range): BP systolic 47–175; BP diastolic 21–104
[2018-08-09] MEDS: METOCLOPRAMIDE HCL 10MG/2ML VIAL IV SCH ×4 (00:50→17:36)
[2018-08-09] MEDS: ACETYLCYSTEINE 100MG/ML 10% VIAL 4ML INH SCH ×2 (02:39→07:29)
[2018-08-09] MEDS: IPRATROPIUM/ALBUTEROL 0.5-3(2.5)MG/3ML NEB HHN SCH ×4 (02:39→20:01)
[2018-08-09 05:52] LABS: BASOPHILS % 0.9 % (0.0-2.0); EOSINOPHILS % 3.5 % (0.0-5.0); HEMATOCRIT. 24.8 % (36.0-48.0); HEMOGLOBIN. 8.3 g/dL (12.0-16.0); LYMPHOCYTES % 7.5 % (20.0-50.0); MEAN CORPUSCULAR HEMOGLOBIN 30.3 pg (28.0-32.0); MEAN CORPUSCULAR VOLUME 90.8 fL (81.0-99.0); MEAN PLATELET VOLUME 9.3 fl (7.4-10.4); MONOCYTES % 11.9 % (2.0-8.0); NEUTROPHILS % 76.2 % (40.0-76.0); PLATELET 290 x1000/uL (130-400); RED BLOOD CELL COUNT 2.73 mill/uL (4.2-5.4); RED CELL DISTRIBUTION WIDTH 15.9 % (11.6-14.6)
[2018-08-09] MEDS: PHENYLEPHRINE 40 MG in DEXT 5% WATER 246 ML IV PRN ×4 (06:40→23:24)
[2018-08-09] MEDS ORDERED: EPINEPHRINE 0.1MG/ML (1:10,000) 10ML SYR ONE (07:28)
[2018-08-09 07:50] LABS: BG BASE EXCESS -17.9 mmol/L (-2.0-2.0); BG CARBOXYHEMOGLOBIN 0.3 % (0.5-1.5); BG FRACTION INSPIRED OXYGEN 100; BG HCO3 ACT 13.4 mmol/L (22.0-26.0); BG METHEMOGLOBIN 0.3 % (0.0-1.5); BG OXYHEMOGLOBIN 96.4 % (94.0-97.0); BG PCO2 59.2 mmHg (35.0-45.0); BG PH 6.973 (7.350-7.450); BG SAMPLE SITE LEFT RADIAL; BG TIDAL VOLUME(mL) 500 mL; BG TOTAL HEMOGLOBIN 10.2 g/dL (12.0-18.0); BG VENT MODE VENT - A/C; BG VENT RATE 12 set
[2018-08-09] MEDS ORDERED: SODIUM BICARBONATE 8.4% 1 MEQ/ML 50ML SYR IV NR ×2 (08:00→09:35)
[2018-08-09] MEDS ORDERED: HYDROCORTISONE SOD SUCCINATE 100 MG/2 ML VIAL IV NR (08:00)
[2018-08-09] MEDS ORDERED: SODIUM BICARBONATE 8.4% 1 MEQ/ML 50ML SYR IV ONE ×2 (08:05→08:06)
[2018-08-09] MEDS: DOCUSATE SODIUM SUGAR FREE 100MG/10ML UDC NG SCH (08:44)
[2018-08-09] MEDS: BISACODYL 10MG SUPP PR SCH (08:44)
[2018-08-09 09:02] LABS: BG BASE EXCESS -9.1 mmol/L (-2.0-2.0); BG CARBOXYHEMOGLOBIN 0.3 % (0.5-1.5); BG DEOXYHEMOGLOBIN 3.3 % (0.0-5.0); BG FRACTION INSPIRED OXYGEN 100; BG HCO3 ACT 19.9 mmol/L (22.0-26.0); BG METHEMOGLOBIN 0.6 % (0.0-1.5); BG OXYGEN SATURATION 96.7 % (92.0-98.5); BG OXYHEMOGLOBIN 95.8 % (94.0-97.0); BG PCO2 58.9 mmHg (35.0-45.0); BG PH 7.146 (7.350-7.450); BG SAMPLE SITE LEFT RADIAL; BG TIDAL VOLUME(mL) 500 mL; BG TOTAL HEMOGLOBIN 10.5 g/dL (12.0-18.0); BG VENT MODE VENT - A/C; BG VENT RATE 12 set
[2018-08-09] MEDS: NOREPINEPHRINE 16 MG in DEXT 5% WATER 234 ML IV PRN (09:06)
[2018-08-09] MEDS: PANTOPRAZOLE SODIUM 40 MG/VIAL IV SCH (09:18)
[2018-08-09] MEDS: MIDODRINE HCL 5MG TABLET PO SCH ×3 (09:19→17:36)
[2018-08-09] MEDS: SODIUM BICARBONATE 100 MEQ in SODIUM CHLORIDE 0.45% 1,000 ML IV SCH (10:36)
[2018-08-09 13:21] LABS: BG BASE EXCESS -0.6 mmol/L (-2.0-2.0); BG CARBOXYHEMOGLOBIN 0.3 % (0.5-1.5); BG DEOXYHEMOGLOBIN 0.7 % (0.0-5.0); BG FRACTION INSPIRED OXYGEN 100; BG HCO3 ACT 26.3 mmol/L (22.0-26.0); BG METHEMOGLOBIN 0.3 % (0.0-1.5); BG OXYGEN SATURATION 99.3 % (92.0-98.5); BG OXYHEMOGLOBIN 98.7 % (94.0-97.0); BG PH 7.298 (7.350-7.450); BG PO2 234.6 mmHg (75.0-100.0); BG SAMPLE SITE LEFT RADIAL; BG TIDAL VOLUME(mL) 500 mL; BG TOTAL HEMOGLOBIN 10.2 g/dL (12.0-18.0); BG VENT MODE VENT - A/C; BG VENT RATE 12 set
[2018-08-09] MEDS: CEFTAZIDIME PENTAHYDRATE 1 G in DEXTROSE 5% WATER 50 ML IV SCH (15:58)
[2018-08-09] MEDS: VANCOMYCIN 2,000 MG in DEXT 5% WATER 500 ML IV NR ×2 (15:58→17:34)
[2018-08-10] VITALS (96 sets, daily range): BP systolic 86–180; BP diastolic 50–102
[2018-08-10] MEDS: IPRATROPIUM/ALBUTEROL 0.5-3(2.5)MG/3ML NEB HHN SCH ×4 (01:51→21:15)
[2018-08-10] MEDS: PHENYLEPHRINE 40 MG in DEXT 5% WATER 246 ML IV PRN ×3 (04:33→16:52)
[2018-08-10] MEDS: METOCLOPRAMIDE HCL 10MG/2ML VIAL IV SCH ×4 (04:34→16:51)
[2018-08-10] MEDS: SODIUM BICARBONATE 100 MEQ in SODIUM CHLORIDE 0.45% 1,000 ML IV SCH (05:52)
[2018-08-10] MEDS: BISACODYL 10MG SUPP PR SCH (09:00)
[2018-08-10] MEDS: DOCUSATE SODIUM SUGAR FREE 100MG/10ML UDC NG SCH (09:00)
[2018-08-10] MEDS: MIDODRINE HCL 5MG TABLET PO SCH ×3 (09:52→16:51)
[2018-08-10] MEDS: PANTOPRAZOLE SODIUM 40 MG/VIAL IV SCH (09:52)
[2018-08-10 10:43] LABS: BG BASE EXCESS 0.1 mmol/L (-2.0-2.0); BG CARBOXYHEMOGLOBIN 0.2 % (0.5-1.5); BG DEOXYHEMOGLOBIN 2.6 % (0.0-5.0); BG FRACTION INSPIRED OXYGEN 50; BG HCO3 ACT 23.8 mmol/L (22.0-26.0); BG METHEMOGLOBIN 0.4 % (0.0-1.5); BG OXYGEN SATURATION 97.4 % (92.0-98.5); BG OXYHEMOGLOBIN 96.8 % (94.0-97.0); BG PCO2 34.7 mmHg (35.0-45.0); BG PH 7.454 (7.350-7.450); BG PO2 99.8 mmHg (75.0-100.0); BG SAMPLE SITE LEFT RADIAL; BG TIDAL VOLUME(mL) 500 mL; BG TOTAL HEMOGLOBIN 8.7 g/dL (12.0-18.0); BG VENT MODE VENT - A/C; BG VENT RATE 14 set
[2018-08-10] MEDS: MORPHINE SULFATE 4 MG/ML CPJ (NOT FOR IM USE) IV PRN (16:32)
[2018-08-10] MEDS: CEFTAZIDIME PENTAHYDRATE 1 G in DEXTROSE 5% WATER 50 ML IV SCH (16:50)
[2018-08-11] VITALS (66 sets, daily range): BP systolic 62–198; BP diastolic 32–91
[2018-08-11] MEDS: PHENYLEPHRINE 40 MG in DEXT 5% WATER 246 ML IV PRN ×3 (00:08→11:17)
[2018-08-11] MEDS: METOCLOPRAMIDE HCL 10MG/2ML VIAL IV SCH ×3 (00:17→12:35)
[2018-08-11] MEDS: IPRATROPIUM/ALBUTEROL 0.5-3(2.5)MG/3ML NEB HHN SCH ×3 (02:03→13:21)
[2018-08-11] MEDS: SODIUM BICARBONATE 100 MEQ in SODIUM CHLORIDE 0.45% 1,000 ML IV SCH (04:06)
[2018-08-11 05:59] LABS: HEMATOCRIT. 24.7 % (36.0-48.0); HEMOGLOBIN. 8.2 g/dL (12.0-16.0); MEAN CORPUSCULAR VOLUME 90.1 fL (81.0-99.0); MEAN PLATELET VOLUME 9.3 fl (7.4-10.4); PLATELET 280 x1000/uL (130-400); RED BLOOD CELL COUNT 2.74 mill/uL (4.2-5.4)
[2018-08-11 07:34] LABS: PLATELET ESTIMATE NORMAL
[2018-08-11] MEDS: DOCUSATE SODIUM SUGAR FREE 100MG/10ML UDC NG SCH (09:00)
[2018-08-11] MEDS: BISACODYL 10MG SUPP PR SCH (09:00)
[2018-08-11 09:15] LABS: BG BASE EXCESS 0.2 mmol/L (-2.0-2.0); BG CARBOXYHEMOGLOBIN 0.6 % (0.5-1.5); BG DEOXYHEMOGLOBIN 5.2 % (0.0-5.0); BG FRACTION INSPIRED OXYGEN 40; BG HCO3 ACT 24.4 mmol/L (22.0-26.0); BG METHEMOGLOBIN 0.2 % (0.0-1.5); BG OXYGEN SATURATION 94.8 % (92.0-98.5); BG PH 7.426 (7.350-7.450); BG PO2 74.5 mmHg (75.0-100.0); BG SAMPLE SITE LEFT RADIAL; BG TIDAL VOLUME(mL) 500 mL; BG TOTAL HEMOGLOBIN 9.5 g/dL (12.0-18.0); BG VENT MODE VENT - A/C; BG VENT RATE 14 set
[2018-08-11] MEDS: MIDODRINE HCL 5MG TABLET PO SCH ×2 (09:25→12:36)
[2018-08-11] MEDS: PANTOPRAZOLE SODIUM 40 MG/VIAL IV SCH (09:25)
[2018-08-11] MEDS: NOREPINEPHRINE 16 MG in DEXT 5% WATER 234 ML IV PRN (09:38)
[2018-08-11] MEDS ORDERED: HEPARIN SODIUM 1,000 UNIT/1ML VIAL IV SCH (11:45)
[2018-08-11] MEDS ORDERED: EPINEPHRINE 0.1MG/ML (1:10,000) 10ML SYR ONE (13:47)
[2018-08-11] MEDS ORDERED: CALCIUM CHLORIDE 1GM/10ML SYR IV ONE (13:47)
[2018-08-11] MEDS ORDERED: SODIUM BICARBONATE 7.5% 0.9 MEQ/ML 50ML SYR IV ONE (13:47)
[2018-08-11] MEDS ORDERED: VANCOMYCIN 750 MG PREMIX 150 ML IV SCH (14:00)
== END 2018-08-11 16:10 | disposition expired | DRG 4 ==
LOC: ER 13:59 → MICUSO 17:01 → EDBEDREQ 17:05 → EDBEDREQSVC 17:05 → EDBEDREQTM 17:05 → ENRESERV 18:05 → 8WST 07-21 06:50 → 5EST 07-24 22:07 → MICUSO 07-27 01:49
PROVIDERS: ADMIT Emergency Medicine; ATTEND Emergency Medicine
PROC: 30233L1 Transfusion of Nonautologous Fresh Plasma into Peripheral Vein, Percutaneous Approach (ICD-10-PCS; 2018-07-12)
PROC: 30233K1 Transfusion of Nonautologous Frozen Plasma into Peripheral Vein, Percutaneous Approach (ICD-10-PCS; 2018-07-12)
PROC: 5A1D70Z Performance of Urinary Filtration, Intermittent, Less than 6 Hours Per Day (ICD-10-PCS; 2018-07-12)
PROC: 5A1D70Z Performance of Urinary Filtration, Intermittent, Less than 6 Hours Per Day (ICD-10-PCS; 2018-07-14)
PROC: 0RG2071 Fusion of 2 or more Cervical Vertebral Joints with Autologous Tissue Substitute, Posterior Approach, Posterior Column, Open Approach (ICD-10-PCS; 2018-07-16)
PROC: 0BH17EZ Insertion of Endotracheal Airway into Trachea, Via Natural or Artificial Opening (ICD-10-PCS; 2018-07-16)
PROC: 5A1945Z Respiratory Ventilation, 24-96 Consecutive Hours (ICD-10-PCS; 2018-07-16)
PROC: 5A1D70Z Performance of Urinary Filtration, Intermittent, Less than 6 Hours Per Day (ICD-10-PCS; 2018-07-16)
PROC: 0RB30ZZ Excision of Cervical Vertebral Disc, Open Approach (ICD-10-PCS; 2018-07-16)
PROC: 05H633Z Insertion of Infusion Device into Left Subclavian Vein, Percutaneous Approach (ICD-10-PCS; 2018-07-18)
PROC: B547ZZA Ultrasonography of Left Subclavian Vein, Guidance (ICD-10-PCS; 2018-07-18)
PROC: 5A1D70Z Performance of Urinary Filtration, Intermittent, Less than 6 Hours Per Day (ICD-10-PCS; 2018-07-19)
PROC: 5A1D70Z Performance of Urinary Filtration, Intermittent, Less than 6 Hours Per Day (ICD-10-PCS; 2018-07-20)
PROC: 5A1D70Z Performance of Urinary Filtration, Intermittent, Less than 6 Hours Per Day (ICD-10-PCS; 2018-07-22)
PROC: 30233N1 Transfusion of Nonautologous Red Blood Cells into Peripheral Vein, Percutaneous Approach (ICD-10-PCS; 2018-07-25)
PROC: 5A1D70Z Performance of Urinary Filtration, Intermittent, Less than 6 Hours Per Day (ICD-10-PCS; 2018-07-25)
PROC: 5A1D70Z Performance of Urinary Filtration, Intermittent, Less than 6 Hours Per Day (ICD-10-PCS; 2018-07-26)
PROC: 5A1955Z Respiratory Ventilation, Greater than 96 Consecutive Hours (ICD-10-PCS; 2018-07-27)
PROC: 4A00X4Z Measurement of Central Nervous Electrical Activity, External Approach (ICD-10-PCS; 2018-07-27)
PROC: 0BH17EZ Insertion of Endotracheal Airway into Trachea, Via Natural or Artificial Opening (ICD-10-PCS; 2018-07-27)
PROC: 5A1D70Z Performance of Urinary Filtration, Intermittent, Less than 6 Hours Per Day (ICD-10-PCS; 2018-07-28)
PROC: 06H033Z Insertion of Infusion Device into Inferior Vena Cava, Percutaneous Approach (ICD-10-PCS; 2018-07-29)
PROC: B549ZZA Ultrasonography of Inferior Vena Cava, Guidance (ICD-10-PCS; 2018-07-29)
PROC: 5A1D70Z Performance of Urinary Filtration, Intermittent, Less than 6 Hours Per Day (ICD-10-PCS; 2018-07-30)
PROC: 5A1D70Z Performance of Urinary Filtration, Intermittent, Less than 6 Hours Per Day (ICD-10-PCS; 2018-08-01)
PROC: 5A1D70Z Performance of Urinary Filtration, Intermittent, Less than 6 Hours Per Day (ICD-10-PCS; 2018-08-03)
PROC: 0DH63UZ Insertion of Feeding Device into Stomach, Percutaneous Approach (ICD-10-PCS; 2018-08-05)
PROC: 0GBJ0ZZ Excision of Thyroid Gland Isthmus, Open Approach (ICD-10-PCS; 2018-08-05)
PROC: 5A1D70Z Performance of Urinary Filtration, Intermittent, Less than 6 Hours Per Day (ICD-10-PCS; 2018-08-05)
PROC: 0B110F4 Bypass Trachea to Cutaneous with Tracheostomy Device, Open Approach (ICD-10-PCS; principal; 2018-08-05 14:00)
PROC: 5A1D70Z Performance of Urinary Filtration, Intermittent, Less than 6 Hours Per Day (ICD-10-PCS; 2018-08-06)
PROC: 5A1D70Z Performance of Urinary Filtration, Intermittent, Less than 6 Hours Per Day (ICD-10-PCS; 2018-08-08)
PROC: 4A00X4Z Measurement of Central Nervous Electrical Activity, External Approach (ICD-10-PCS; 2018-08-10)
PROC: 5A1D70Z Performance of Urinary Filtration, Intermittent, Less than 6 Hours Per Day (ICD-10-PCS; 2018-08-11)
PROC: 5A12012 Performance of Cardiac Output, Single, Manual (ICD-10-PCS; 2018-08-11)
DX: S06.5X0A Traumatic subdural hemorrhage without loss of consciousness, initial encounter (principal); J69.0 Pneumonitis due to inhalation of food and vomit; R65.21 Severe sepsis with septic shock; A41.9 Sepsis, unspecified organism; G82.50 Quadriplegia, unspecified; G93.41 Metabolic encephalopathy; E44.0 Moderate protein-calorie malnutrition; I13.2 Hypertensive heart and chronic kidney disease with heart failure and with stage 5 chronic kidney disease, or end stage renal disease; I48.2 Chronic atrial fibrillation; G95.20 Unspecified cord compression; M47.12 Other spondylosis with myelopathy, cervical region; I46.9 Cardiac arrest, cause unspecified; S12.200A Unspecified displaced fracture of third cervical vertebra, initial encounter for closed fracture; S12.300A Unspecified displaced fracture of fourth cervical vertebra, initial encounter for closed fracture; J96.00 Acute respiratory failure, unspecified whether with hypoxia or hypercapnia; N18.6 End stage renal disease; D68.9 Coagulation defect, unspecified; E11.22 Type 2 diabetes mellitus with diabetic chronic kidney disease; E87.5 Hyperkalemia; M50.00 Cervical disc disorder with myelopathy, unspecified cervical region; G81.94 Hemiplegia, unspecified affecting left nondominant side; M48.02 Spinal stenosis, cervical region; I50.9 Heart failure, unspecified; I48.91 Unspecified atrial fibrillation; M48.04 Spinal stenosis, thoracic region; M25.78 Osteophyte, vertebrae; M43.10 Spondylolisthesis, site unspecified; I49.5 Sick sinus syndrome; D63.1 Anemia in chronic kidney disease; W06.XXXA Fall from bed, initial encounter; N39.0 Urinary tract infection, site not specified; J98.11 Atelectasis; E03.9 Hypothyroidism, unspecified; E78.5 Hyperlipidemia, unspecified; E87.2 Acidosis; I25.10 Atherosclerotic heart disease of native coronary artery without angina pectoris; Z96.649 Presence of unspecified artificial hip joint; R13.12 Dysphagia, oropharyngeal phase; N31.9 Neuromuscular dysfunction of bladder, unspecified; M48.061 Spinal stenosis, lumbar region without neurogenic claudication; K56.7 Ileus, unspecified; I27.20 Pulmonary hypertension, unspecified; I48.92 Unspecified atrial flutter; I08.1 Rheumatic disorders of both mitral and tricuspid valves; D68.59 Other primary thrombophilia; K59.2 Neurogenic bowel, not elsewhere classified; M10.9 Gout, unspecified; E66.9 Obesity, unspecified; K29.00 Acute gastritis without bleeding; K85.90 Acute pancreatitis without necrosis or infection, unspecified; E87.1 Hypo-osmolality and hyponatremia; I95.9 Hypotension, unspecified; E11.649 Type 2 diabetes mellitus with hypoglycemia without coma; M46.02 Spinal enthesopathy, cervical region; S14.109A Unspecified injury at unspecified level of cervical spinal cord, initial encounter; Z79.01 Long term (current) use of anticoagulants; Z99.2 Dependence on renal dialysis; Z94.0 Kidney transplant status; I25.2 Old myocardial infarction; Z99.11 Dependence on respirator [ventilator] status; Z95.5 Presence of coronary angioplasty implant and graft; Z95.0 Presence of cardiac pacemaker; Z86.73 Personal history of transient ischemic attack (TIA), and cerebral infarction without residual deficits; Z86.718 Personal history of other venous thrombosis and embolism; Z86.711 Personal history of pulmonary embolism; Z82.49 Family history of ischemic heart disease and other diseases of the circulatory system; Z79.899 Other long term (current) drug therapy; Y93.89 Activity, other specified; Y92.89 Other specified places as the place of occurrence of the external cause; Y99.8 Other external cause status; Z68.33 Body mass index [BMI] 33.0-33.9, adult
CPT/HCPCS: 31500; 36415; 36556; 36569; 36600; 70544; 70551; 70553; 71045; 71275; 72040; 72141; 72146; 72148; 72170; 73502; 74018; 76937; 80048; 80076; 80202; 82375; 82550; 82805; 82962; 83605; 83721; 83735; 84443; 84478; 84484; 84550; 85027; 85384; 86850; 86900; 86920; 86927; 87070; 87077; 87186; 88304; 88311; 92610; 92950; 93005; 93306; 93970; 93971; 94002; 94003; 94640; 95925; 95926; 95928; 95929; 96372; 96374; 96375; 96376; 97110; 97162; 97166; 97530; 99291; A4216; A6261; C1725; C1752; C1892; C9113; J0690; J0692; J0713; J0885; J1100; J1265; J1644; J1720; J1953; J2060; J2185; J2250; J2270; J2370; J2405; J2543; J2704; J2710; J2765; J3010; J3370; J3430; J3490; J7030; J7040; J7042; J7050; J7060; J7121; J7608; J7620; L0172; P9016; P9017; Q9967; A4315